=== PATIENT | male | born 1965 | race Hispanic/Latino ===

== ENCOUNTER 2020-10-27 11:04 | Inpatient (IN) | payer OTHER ==
[~2020-10-27] VITALS: Ht 175.3 cm; Wt 94.0 kg
[2020-10-27 12:16] LABS: BASOPHILS % (AUTO) 2.6 % (0.0-5.0); EOSINOPHILS % (AUTO) 8.8 % (0.0-8.0); HEMATOCRIT 35.6 % (42-54); LYMPHOCYTES % (AUTO) 23.7 % (21.0-51.0); MEAN CORPUSCULAR HEMOGLOBIN 29.3 pg (27.0-33.0); MEAN CORPUSCULAR HGB CONC 33.7 g/dL (32.0-36.0); MEAN CORPUSCULAR VOLUME 86.8 fL (79-99); MONOCYTES % (AUTO) 13.1 % (3.0-13.0); NEUTROPHILS % (AUTO) 51.4 % (40.0-77.0); PLATELET COUNT (AUTO) 102 K/uL (130-400); RED CELL DISTRIBUTION WIDTH 14.6 % (11.0-15.5); WHITE BLOOD COUNT (AUTO) 4.6 K/uL (4.8-10.8)
[2020-10-27 12:25] LABS: CREATININE 0.6 mg/dL (0.5-1.5); POTASSIUM 3.5 mmol/L (3.5-5.1)
[2020-10-27 12:29] LABS: ALBUMIN 2.4 g/dL (3.5-5.0); BILIRUBIN,TOTAL 5.6 mg/dL (0.2-1.0); TOTAL PROTEIN, SERUM 7.4 g/dL (6.0-8.3)
[2020-10-27 12:32] LABS: APPEARANCE,URINE Clear (CLEAR); BILIRUBIN,URINE Small (NEGATIVE); COLOR,URINE Dark Yellow (YELLOW); GLUCOSE, URINE (UA) Negative (NEGATIVE); KETONES,URINE Negative (NEGATIVE); LEUKOCYTE ESTERASE ,URINE Negative (NEGATIVE); NITRATE,URINE Negative (NEGATIVE); OCCULT BLOOD,URINE Negative (NEGATIVE); PH,URINE 6.5 (5.0-8.0); PROTEIN,URINE Negative (NEGATIVE)
[2020-10-27 12:39] LABS: AMPHET/METH SCREEN,URINE NEGATIVE (NEGATIVE); BARBITURATE SCREEN, URINE NEGATIVE (NEGATIVE); BENZODIAZEPINES SCREEN,URINE NEGATIVE (NEGATIVE); CANNABINOID SCREEN,URINE NEGATIVE (NEGATIVE); COCAINE SCREEN,URINE NEGATIVE (NEGATIVE); OPIATE SCREEN,URINE NEGATIVE (NEGATIVE); PHENCYCLIDINE SCREEN,URINE NEGATIVE (NEGATIVE)
[2020-10-27 12:54] LABS: B-TYPE NATRIURETIC PEPTIDE 35 pg/mL (0-100)
[2020-10-27 12:56] LABS: BACTERIA,URINE Rare /HPF (None Seen); RBC,URINE 0-1 /HPF (0-1); SQUAMOUS EPITHELIAL CELL,UR 0-2 /HPF (0-2); WBC,URINE 0-1 /HPF (0-1)
[2020-10-27] MEDS ORDERED: LORAZEPAM 2 MG/ML 1 ML VIAL IVP PRN (15:30)
[2020-10-27] MEDS ORDERED: PHARMACY COMMUNICATION MISC PRN (15:30)
[2020-10-27] MEDS ORDERED: CHLORDIAZEPOXIDE HCL 25 MG CAP PO PRN (15:30)
[2020-10-27 16:33] LABS: INR 1.53 (0.85-1.15)
[2020-10-27 16:39] LABS: CRP QUANTITATIVE 32.5 mg/L (0.00-9.0)
[2020-10-27] MEDS ORDERED: FUROSEMIDE 40 MG TABLET ONE (17:29)
[2020-10-27] MEDS ORDERED: FUROSEMIDE 40 MG TABLET PO SCH (17:30)
[2020-10-27] MEDS ORDERED: TRAMADOL HCL 50 MG TABLET ONE (20:02)
[2020-10-28 06:36] LABS: BASOPHILS % (AUTO) 2.5 % (0.0-5.0); EOSINOPHILS % (AUTO) 7.4 % (0.0-8.0); HEMATOCRIT 31.2 % (42-54); LYMPHOCYTES % (AUTO) 25.1 % (21.0-51.0); MEAN CORPUSCULAR HEMOGLOBIN 30.6 pg (27.0-33.0); MEAN CORPUSCULAR HGB CONC 34.9 g/dL (32.0-36.0); MEAN CORPUSCULAR VOLUME 87.6 fL (79-99); MONOCYTES % (AUTO) 15.5 % (3.0-13.0); NEUTROPHILS % (AUTO) 48.8 % (40.0-77.0); PLATELET COUNT (AUTO) 85 K/uL (130-400); RED BLOOD CELL COUNT(AUTO) 3.56 MIL/uL (4.50-6.20); RED CELL DISTRIBUTION WIDTH 14.6 % (11.0-15.5); WHITE BLOOD COUNT (AUTO) 4.1 K/uL (4.8-10.8)
[2020-10-28 06:49] LABS: ALBUMIN 2.1 g/dL (3.5-5.0); BILIRUBIN,TOTAL 5.6 mg/dL (0.2-1.0); CREATININE 0.5 mg/dL (0.5-1.5); POTASSIUM 3.1 mmol/L (3.5-5.1); TOTAL PROTEIN, SERUM 6.5 g/dL (6.0-8.3)
[2020-10-28] MEDS ORDERED: FUROSEMIDE 40 MG TABLET ONE (08:27)
[2020-10-28] MEDS ORDERED: FUROSEMIDE 40 MG TABLET PO SCH (09:00)
[2020-10-28] MEDS ORDERED: M.V.I. IV [ADULT] 10 ML, FOLIC ACID 1 MG, THIAMINE HCL 100 MG in SODIUM CHLORIDE 0.9% 1... IV SCH (09:00)
[2020-10-28] MEDS: THIAMINE HCL 100 MG/ML 2ML VIAL IVP SCH (09:00)
[2020-10-28] MEDS ORDERED: CHLORDIAZEPOXIDE HCL 25 MG CAP PO ONE (09:00)
[2020-10-28] MEDS: FOLIC ACID 1 MG TABLET PO SCH (09:00)
[2020-10-28] MEDS ORDERED: MAGNESIUM 2GM PREMIX 50ML 50 ML IV ONE (09:04)
[2020-10-28] MEDS ORDERED: CHLORDIAZEPOXIDE HCL 25 MG CAP ONE (09:04)
[2020-10-28] MEDS ORDERED: POTASSIUM CHLORIDE 10% ELIXIR 20 MEQ/15 ML UDCUP PO SCH (09:52)
[2020-10-28 10:08] LABS: THYROID STIMULATING HORMONE 3.82 uIU/mL (0.36-3.74)
[2020-10-28] MEDS ORDERED: LACTULOSE 20 GM/30 ML UDCUP PO PRN (11:45)
[2020-10-28] MEDS ORDERED: POTASSIUM CHLORIDE 20 MEQ ERTAB PO ONE (12:19)
[2020-10-28] MEDS ORDERED: THIAMINE HCL 100 MG/ML 2ML VIAL ONE (12:19)
[2020-10-28] MEDS ORDERED: FOLIC ACID 1 MG TABLET ONE (12:20)
[2020-10-28] MEDS: LACTULOSE 20 GM/30 ML UDCUP PO SCH ×2 (13:00→20:40)
[2020-10-28] MEDS: SPIRONOLACTONE 25 MG TAB PO SCH (14:00)
[2020-10-28] MEDS ORDERED: TRAMADOL HCL 50 MG TABLET ONE (15:26)
[2020-10-28 16:35] VITALS: BP 151/78
[2020-10-28] MEDS: TRAMADOL HCL 50 MG TABLET PO PRN (16:59)
[2020-10-28 20:27] VITALS: BP 121/70
[2020-10-28 23:48] VITALS: BP 123/66
[2020-10-29 04:16] VITALS: BP 131/76
[2020-10-29 05:49] LABS: EOSINOPHILS % (AUTO) 9.7 % (0.0-8.0); HEMATOCRIT 32.2 % (42-54); LYMPHOCYTES % (AUTO) 27.6 % (21.0-51.0); MEAN CORPUSCULAR HEMOGLOBIN 30.2 pg (27.0-33.0); MEAN CORPUSCULAR HGB CONC 34.5 g/dL (32.0-36.0); MEAN CORPUSCULAR VOLUME 87.5 fL (79-99); MONOCYTES % (AUTO) 14.2 % (3.0-13.0); NEUTROPHILS % (AUTO) 45.9 % (40.0-77.0); PLATELET COUNT (AUTO) 104 K/uL (130-400); RED BLOOD CELL COUNT(AUTO) 3.68 MIL/uL (4.50-6.20); RED CELL DISTRIBUTION WIDTH 14.4 % (11.0-15.5); WHITE BLOOD COUNT (AUTO) 5.1 K/uL (4.8-10.8)
[2020-10-29] MEDS: FUROSEMIDE 20 MG TABLET PO SCH ×2 (06:00→17:46)
[2020-10-29 06:15] LABS: BILIRUBIN,TOTAL 5.4 mg/dL (0.2-1.0); CREATININE 0.6 mg/dL (0.5-1.5); MAGNESIUM 1.6 mg/dL (1.80-2.40); POTASSIUM 3.3 mmol/L (3.5-5.1); TOTAL PROTEIN, SERUM 6.7 g/dL (6.0-8.3)
[2020-10-29 07:16] LABS: HEPATITIS A ANTIBODY IGM Negative (Negative); HEPATITIS B CORE IGM Negative (Negative); HEPATITIS Bs ANTIGEN SCREEN P Negative (Negative)
[2020-10-29 08:27] VITALS: BP 129/70
[2020-10-29] MEDS ORDERED: FUROSEMIDE 20 MG TABLET PO SCH (09:00)
[2020-10-29] MEDS: FOLIC ACID 1 MG TABLET PO SCH (10:54)
[2020-10-29] MEDS: LACTULOSE 20 GM/30 ML UDCUP PO SCH ×2 (10:54→21:57)
[2020-10-29] MEDS: THIAMINE HCL 100 MG/ML 2ML VIAL IVP SCH (10:54)
[2020-10-29] MEDS: SPIRONOLACTONE 25 MG TAB PO SCH (10:54)
[2020-10-29 11:41] VITALS: BP 116/61
[2020-10-29] MEDS: TRAMADOL HCL 50 MG TABLET PO PRN (15:28)
[2020-10-29 16:45] VITALS: BP 112/66
[2020-10-29 18:09] LABS: CHLAMYDIA DNA N.A.AMPLIFY Negative (Negative)
[2020-10-29 20:00] VITALS: BP 112/59
[2020-10-29] MEDS ORDERED: POTASSIUM CHLORIDE 20MEQ/100ML 100 ML IV PRN (20:30)
[2020-10-29] MEDS ORDERED: POTASSIUM CHLORIDE 10% ELIXIR 20 MEQ/15 ML UDCUP PO PRN (20:30)
[2020-10-29] MEDS ORDERED: MAGNESIUM 2GM PREMIX 50ML 50 ML IV PRN (20:30)
[2020-10-29] MEDS ORDERED: LIDOCAINE HCL-MPF 1% 2ML VIAL IV PRN (20:30)
[2020-10-29] MEDS: POTASSIUM CHLORIDE 20 MEQ ERTAB PO PRN (21:59)
[2020-10-29] MEDS: MAGNESIUM 2GM PREMIX 50ML 50 ML IV SCH (21:59)
[2020-10-30] VITALS: BP 96/52
[2020-10-30] MEDS: POTASSIUM CHLORIDE 20 MEQ ERTAB PO PRN ×3 (00:25→15:03)
[2020-10-30] MEDS: TRAMADOL HCL 50 MG TABLET PO PRN (00:26)
[2020-10-30 04:00] VITALS: BP 112/62
[2020-10-30 04:53] LABS: BASOPHILS % (AUTO) 1.6 % (0.0-5.0); LYMPHOCYTES % (AUTO) 27.3 % (21.0-51.0); MEAN CORPUSCULAR HEMOGLOBIN 31.3 pg (27.0-33.0); MEAN CORPUSCULAR HGB CONC 35.2 g/dL (32.0-36.0); MEAN CORPUSCULAR VOLUME 89.1 fL (79-99); MONOCYTES % (AUTO) 14.2 % (3.0-13.0); NEUTROPHILS % (AUTO) 46.4 % (40.0-77.0); PLATELET COUNT (AUTO) 104 K/uL (130-400); RED BLOOD CELL COUNT(AUTO) 3.48 MIL/uL (4.50-6.20); RED CELL DISTRIBUTION WIDTH 14.6 % (11.0-15.5); WHITE BLOOD COUNT (AUTO) 5.5 K/uL (4.8-10.8)
[2020-10-30 05:04] LABS: CREATININE 0.6 mg/dL (0.5-1.5); POTASSIUM 3.4 mmol/L (3.5-5.1)
[2020-10-30] MEDS: FUROSEMIDE 20 MG TABLET PO SCH ×2 (05:47→19:38)
[2020-10-30 05:52] LABS: BILIRUBIN,DIRECT 2.8 mg/dL (0.0-0.3); MAGNESIUM 1.7 mg/dL (1.80-2.40); TOTAL PROTEIN, SERUM 6.6 g/dL (6.0-8.3)
[2020-10-30] MEDS: MAGNESIUM 2GM PREMIX 50ML 50 ML IV SCH (06:25)
[2020-10-30 07:30] VITALS: BP 102/65
[2020-10-30] MEDS: LACTULOSE 20 GM/30 ML UDCUP PO SCH (10:30)
[2020-10-30] MEDS: SPIRONOLACTONE 25 MG TAB PO SCH (10:30)
[2020-10-30] MEDS: FOLIC ACID 1 MG TABLET PO SCH (10:30)
[2020-10-30] MEDS: THIAMINE HCL 100 MG/ML 2ML VIAL IVP SCH (10:32)
[2020-10-30 11:00] VITALS: BP 107/71
[2020-10-30] MEDS ORDERED: CHLORDIAZEPOXIDE HCL 25 MG CAP PO SCH (13:30)
[2020-10-30] MEDS ORDERED: CYAN-52 PO (15:30)
[2020-10-30] MEDS ORDERED: LIB25 PO (15:30)
[2020-10-30] MEDS ORDERED: FOLI0.4T6 PO (15:30)
[2020-10-30] MEDS ORDERED: LACT PO (15:30)
[2020-10-30] MEDS ORDERED: SPIR25TA6 PO (15:30)
[2020-10-30 16:00] VITALS: BP 111/69
== END 2020-10-30 19:20 | disposition home or self-care (01) | DRG 729 ==
LOC: EDH 11:04 → EDHIP 11:05 → 4AH 10-28 16:39 → 3BH 10-29 11:24
PROVIDERS: ADMIT Internal Medicine; ATTEND Internal Medicine
DX: N50.89 Other specified disorders of the male genital organs (principal); D68.4 Acquired coagulation factor deficiency; K76.6 Portal hypertension; K70.31 Alcoholic cirrhosis of liver with ascites; F10.10 Alcohol abuse, uncomplicated; D69.6 Thrombocytopenia, unspecified; K40.90 Unilateral inguinal hernia, without obstruction or gangrene, not specified as recurrent; K70.11 Alcoholic hepatitis with ascites; K57.30 Diverticulosis of large intestine without perforation or abscess without bleeding
CPT/HCPCS: 36415; 70450; 71046; 74176; 76705; 76870; 80048; 80053; 80061; 80074; 80076; 80305; 81001; 82140; 82550; 83036; 83735; 83880; 84145; 84443; 84484; 85025; 85610; 86140; 86592; 87486; 87797; G0378; J3411; J3475; J3490; J7030

== ENCOUNTER 2020-12-02 09:40 | Emergency (ER) | payer OTHER ==
[~2020-12-02] VITALS: Ht 172.7 cm; Wt 97.5 kg
[~2020-12-02 09:40] MED LIST: CYAN-52 PO; FOLI0.4T6 PO; LACT PO; LIB25 PO; SPIR25TA6 PO
[2020-12-02 09:42] VITALS: BP 118/71
[2020-12-02 10:08] LABS: BASOPHILS % (AUTO) 1.4 % (0.0-5.0); EOSINOPHILS % (AUTO) 12.6 % (0.0-8.0); HEMATOCRIT 27.4 % (42-54); LYMPHOCYTES % (AUTO) 28.7 % (21.0-51.0); MEAN CORPUSCULAR HEMOGLOBIN 30.8 pg (27.0-33.0); MEAN CORPUSCULAR HGB CONC 33.6 g/dL (32.0-36.0); MEAN CORPUSCULAR VOLUME 91.6 fL (79-99); MONOCYTES % (AUTO) 8.1 % (3.0-13.0); NEUTROPHILS % (AUTO) 48.7 % (40.0-77.0); PLATELET COUNT (AUTO) 135 K/uL (130-400); RED BLOOD CELL COUNT(AUTO) 2.99 MIL/uL (4.50-6.20); RED CELL DISTRIBUTION WIDTH 14.5 % (11.0-15.5); WHITE BLOOD COUNT (AUTO) 6.5 K/uL (4.8-10.8)
[2020-12-02 10:13] LABS: CREATININE 0.8 mg/dL (0.5-1.5); POTASSIUM 4.2 mmol/L (3.5-5.1)
[2020-12-02 10:17] LABS: ALBUMIN 1.8 g/dL (3.5-5.0); BILIRUBIN,TOTAL 5.5 mg/dL (0.2-1.0); TOTAL PROTEIN, SERUM 7.2 g/dL (6.0-8.3)
[2020-12-02] MEDS ORDERED: ALBUMIN (HUMAN) 25% 200 ML IV ONE (10:36)
[2020-12-02 11:58] LABS: INR 1.57 (0.85-1.15); PROTHROMBIN TIME 16.4 SEC (9.6-11.6)
[2020-12-02 12:00] LABS: PARTIAL THROMBOPLASTIN TIME 38.3 SEC (26.3-35.5)
[2020-12-02 12:59] VITALS: BP 132/60
[2020-12-02 17:56] LABS: APPEARANCE BODY FLUID CLEAR (CLEAR); SPECIMENTYPE,BODY FLUID ASCITES
[2020-12-02 17:57] LABS: BODY FLUID RBC 124 /cu. mm.; BODY FLUID WBC 143 /cu. mm.; COLOR,BODY FLUID YELLOW (LT YELLOW)
[2020-12-02 18:11] LABS: BF LYMPHOCYTE 18 %; BF MONOCYTE 1 %; BF OTHER CELLS 7
[2020-12-02 19:10] LABS: TOTAL VOLUME,BODY FLUID 11200 mL
== END 2020-12-02 13:13 | disposition home or self-care (01) ==
LOC: EDH 09:40
DX: R18.8 Other ascites (principal); K74.60 Unspecified cirrhosis of liver; Z79.899 Other long term (current) drug therapy
CPT/HCPCS: 36415; 49083; 80053; 82150; 82550; 83690; 84484; 85025; 85610; 85730; 87071; 87205; 89051; 93005; 96365; 99285; A4215; P9046

== ENCOUNTER 2020-12-19 08:29 | Emergency (ER) | payer OTHER ==
[~2020-12-19] VITALS: Ht 167.6 cm; Wt 108.9 kg
[2020-12-19 08:31] VITALS: BP 114/55
[2020-12-19 09:12] LABS: BASOPHILS % (AUTO) 1.1 % (0.0-5.0); EOSINOPHILS % (AUTO) 13.3 % (0.0-8.0); HEMATOCRIT 26.1 % (42-54); LYMPHOCYTES % (AUTO) 26.9 % (21.0-51.0); MEAN CORPUSCULAR HGB CONC 34.1 g/dL (32.0-36.0); MEAN CORPUSCULAR VOLUME 93.9 fL (79-99); MONOCYTES % (AUTO) 11.9 % (3.0-13.0); NEUTROPHILS % (AUTO) 46.1 % (40.0-77.0); PLATELET COUNT (AUTO) 132 K/uL (130-400); RED BLOOD CELL COUNT(AUTO) 2.78 MIL/uL (4.50-6.20); RED CELL DISTRIBUTION WIDTH 14.9 % (11.0-15.5)
[2020-12-19 09:20] LABS: CREATININE 0.8 mg/dL (0.5-1.5); POTASSIUM 3.9 mmol/L (3.5-5.1)
[2020-12-19 09:21] LABS: INR 1.8 (0.85-1.15); PROTHROMBIN TIME 18.6 SEC (9.6-11.6)
[2020-12-19 09:25] LABS: ALBUMIN 1.7 g/dL (3.5-5.0); BILIRUBIN,TOTAL 6.2 mg/dL (0.2-1.0); TOTAL PROTEIN, SERUM 6.6 g/dL (6.0-8.3)
[2020-12-19 10:13] VITALS: BP 110/66
[2020-12-19 11:24] VITALS: BP 102/59
[2020-12-19] MEDS ORDERED: ALBUMIN (HUMAN) 25% 200 ML IV ONE (11:26)
[2020-12-19] MEDS ORDERED: SODIUM BICARB 50MEQ 50ML VIAL 50 ML ONE (11:26)
[2020-12-19] MEDS ORDERED: ALBUMIN (HUMAN) 25% 200 ML IV SCH (11:30)
[2020-12-19 12:29] VITALS: BP 110/66
[2020-12-19 13:59] VITALS: BP 102/55
[2020-12-19 15:04] VITALS: BP 108/60
[2020-12-19 17:20] LABS: APPEARANCE BODY FLUID SLIGHTLY CLOUDY (CLEAR); COLOR,BODY FLUID YELLOW (LT YELLOW); SPECIMENTYPE,BODY FLUID ASCITES; TOTAL VOLUME,BODY FLUID 12700 mL
[2020-12-19 17:21] LABS: BODY FLUID RBC 78 /cu. mm.; BODY FLUID WBC 73 /cu. mm.
[2020-12-19 17:43] LABS: BF LYMPHOCYTE 44 %; BF MESOTHELIAL 31 %; BF MONOCYTE 2 %
== END 2020-12-19 16:05 | disposition home or self-care (01) ==
LOC: EDH 08:29
DX: R18.8 Other ascites (principal); R14.0 Abdominal distension (gaseous); R06.02 Shortness of breath; Z98.890 Other specified postprocedural states; Z79.899 Other long term (current) drug therapy
CPT/HCPCS: 36415; 49083; 71045; 80053; 84484; 85025; 85610; 87071; 87205; 89051; 96365; 99285; A4215; J3490; P9046

== ENCOUNTER 2021-01-02 09:20 | Emergency (ER) | payer OTHER ==
[~2021-01-02] VITALS: Ht 172.7 cm; Wt 107.5 kg
[2021-01-02 10:02] LABS: BASOPHILS % (AUTO) 1.4 % (0.0-5.0); EOSINOPHILS % (AUTO) 16.4 % (0.0-8.0); HEMATOCRIT 24.6 % (42-54); LYMPHOCYTES % (AUTO) 24.5 % (21.0-51.0); MEAN CORPUSCULAR HEMOGLOBIN 31.1 pg (27.0-33.0); MEAN CORPUSCULAR HGB CONC 33.7 g/dL (32.0-36.0); MEAN CORPUSCULAR VOLUME 92.1 fL (79-99); MONOCYTES % (AUTO) 9.4 % (3.0-13.0); NEUTROPHILS % (AUTO) 47.7 % (40.0-77.0); PLATELET COUNT (AUTO) 119 K/uL (130-400); RED BLOOD CELL COUNT(AUTO) 2.67 MIL/uL (4.50-6.20); RED CELL DISTRIBUTION WIDTH 13.4 % (11.0-15.5); WHITE BLOOD COUNT (AUTO) 6.4 K/uL (4.8-10.8)
[2021-01-02 10:06] LABS: APPEARANCE,URINE Clear (CLEAR); BILIRUBIN,URINE Negative (NEGATIVE); COLOR,URINE Yellow (YELLOW); GLUCOSE, URINE (UA) Negative (NEGATIVE); KETONES,URINE Negative (NEGATIVE); LEUKOCYTE ESTERASE ,URINE Negative (NEGATIVE); NITRATE,URINE Negative (NEGATIVE); OCCULT BLOOD,URINE Negative (NEGATIVE); PH,URINE 5.5 (5.0-8.0); PROTEIN,URINE Negative (NEGATIVE)
[2021-01-02 10:17] LABS: ALBUMIN 1.8 g/dL (3.5-5.0); BILIRUBIN,TOTAL 4.6 mg/dL (0.2-1.0); CREATININE 0.8 mg/dL (0.5-1.5); MAGNESIUM 1.7 mg/dL (1.80-2.40); POTASSIUM 4.1 mmol/L (3.5-5.1); TOTAL PROTEIN, SERUM 6.7 g/dL (6.0-8.3)
[2021-01-02 10:33] LABS: INR 1.74 (0.85-1.15)
[2021-01-02 10:35] LABS: PARTIAL THROMBOPLASTIN TIME 44.6 SEC (26.3-35.5)
[2021-01-02] MEDS ORDERED: MAGNESIUM OXIDE 400 MG TABLET PO SCH (11:00)
[2021-01-02 11:11] VITALS: BP 97/51
[2021-01-02] MEDS ORDERED: ALBUMIN (HUMAN) 25% 200 ML IV ONE (11:57)
[2021-01-02 13:44] VITALS: BP 91/55
[2021-01-02 15:19] LABS: BF LYMPHOCYTE 45 %; BF MESOTHELIAL 18 %; BF MONOCYTE 6 %
[2021-01-02 15:23] LABS: APPEARANCE BODY FLUID SLIGHTLY CLOUDY (CLEAR); COLOR,BODY FLUID YELLOW (LT YELLOW); SPECIMENTYPE,BODY FLUID ASCITES; TOTAL VOLUME,BODY FLUID 13800 mL
[2021-01-02 15:24] LABS: BODY FLUID RBC 50 /cu. mm.; BODY FLUID WBC 67 /cu. mm.
== END 2021-01-02 15:41 | disposition home or self-care (01) ==
LOC: EDH 09:20
DX: R18.8 Other ascites (principal); K74.60 Unspecified cirrhosis of liver; E83.42 Hypomagnesemia; Z79.899 Other long term (current) drug therapy
CPT/HCPCS: 36415; 49083; 80053; 81003; 83690; 83735; 85025; 85610; 85730; 87071; 87205; 89051; 96365; 99285; C1729; P9046

== ENCOUNTER 2021-01-06 12:31 | Emergency (ER) | payer OTHER ==
[~2021-01-06] VITALS: Ht 172.7 cm; Wt 104.3 kg
[2021-01-06 12:32] VITALS: BP 107/64
[2021-01-06 14:45] LABS: HEMATOCRIT 24.2 % (42-54); MEAN CORPUSCULAR HEMOGLOBIN 31.2 pg (27.0-33.0); MEAN CORPUSCULAR HGB CONC 33.5 g/dL (32.0-36.0); MEAN CORPUSCULAR VOLUME 93.1 fL (79-99); PLATELET COUNT (AUTO) 132 K/uL (130-400); RED CELL DISTRIBUTION WIDTH 13.3 % (11.0-15.5); WHITE BLOOD COUNT (AUTO) 10.6 K/uL (4.8-10.8)
[2021-01-06 14:59] LABS: POTASSIUM 4.5 mmol/L (3.5-5.1)
[2021-01-06 15:00] LABS: INR 1.86 (0.85-1.15); PROTHROMBIN TIME 19.2 SEC (9.6-11.6)
[2021-01-06 15:02] LABS: PARTIAL THROMBOPLASTIN TIME 49.7 SEC (26.3-35.5)
[2021-01-06 15:04] LABS: ALBUMIN 1.9 g/dL (3.5-5.0); BILIRUBIN,TOTAL 7.1 mg/dL (0.2-1.0); TOTAL PROTEIN, SERUM 6.4 g/dL (6.0-8.3)
[2021-01-06 15:28] LABS: EOSINOPHILS % (MANUAL) 3 % (1-6); LYMPHOCYTES % (MANUAL) 22 % (22-44); MONOCYTES % (MANUAL) 4 % (2-9); SEGMENTED NEUTROPHILS % 71 % (40-70)
[2021-01-06 15:29] LABS: MAN.DIFF COMMENT-IMPRESSION MANUAL DIFFERENTIAL; PLATELET MORPHOLOGY COMMENT ADEQUATE
[2021-01-06 18:04] VITALS: BP 135/82
== END 2021-01-06 18:00 | disposition home or self-care (01) ==
LOC: EDH 12:31
DX: R18.8 Other ascites (principal); K74.60 Unspecified cirrhosis of liver; Z79.899 Other long term (current) drug therapy
CPT/HCPCS: 36415; 80053; 85025; 85610; 85730

== ENCOUNTER 2021-01-07 08:29 | Inpatient (IN) | payer OTHER ==
[~2021-01-07] VITALS: Ht 172.7 cm; Wt 104.3 kg
[2021-01-07] MEDS: FAMOTIDINE 20MG VIAL IV SCH ×2 (00:30→13:58)
[2021-01-07 08:37] VITALS: BP 113/65
[2021-01-07 09:45] LABS: BASOPHILS % (AUTO) 0.5 % (0.0-5.0); EOSINOPHILS % (AUTO) 8.1 % (0.0-8.0); MEAN CORPUSCULAR HGB CONC 33.8 g/dL (32.0-36.0); MONOCYTES % (AUTO) 13.4 % (3.0-13.0); NEUTROPHILS % (AUTO) 60.4 % (40.0-77.0); PLATELET COUNT (AUTO) 128 K/uL (130-400); RED BLOOD CELL COUNT(AUTO) 2.61 MIL/uL (4.50-6.20); RED CELL DISTRIBUTION WIDTH 13.1 % (11.0-15.5); WHITE BLOOD COUNT (AUTO) 8.4 K/uL (4.8-10.8)
[2021-01-07 10:01] LABS: INR 1.73 (0.85-1.15); PROTHROMBIN TIME 17.9 SEC (9.6-11.6)
[2021-01-07 10:02] LABS: PARTIAL THROMBOPLASTIN TIME 49.5 SEC (26.3-35.5)
[2021-01-07 10:04] LABS: ALBUMIN 1.8 g/dL (3.5-5.0); BILIRUBIN,TOTAL 5.6 mg/dL (0.2-1.0); POTASSIUM 4.2 mmol/L (3.5-5.1); TOTAL PROTEIN, SERUM 6.2 g/dL (6.0-8.3)
[2021-01-07] MEDS ORDERED: CHLORDIAZEPOXIDE HCL 25 MG CAP PO PRN (11:30)
[2021-01-07] MEDS ORDERED: LACTULOSE 20 GM/30 ML UDCUP PO PRN (11:30)
[2021-01-07] MEDS ORDERED: LORAZEPAM 2 MG/ML 1 ML VIAL IVP PRN (11:30)
[2021-01-07] MEDS ORDERED: PHARMACY COMMUNICATION MISC PRN (11:30)
[2021-01-07] MEDS ORDERED: SPIRONOLACTONE 25 MG TAB PO SCH (11:52)
[2021-01-07] MEDS: THIAMINE HCL 100 MG/ML 2ML VIAL IVP SCH (13:58)
[2021-01-07] MEDS: FOLIC ACID 1 MG TABLET PO SCH (13:58)
[2021-01-07] MEDS: FUROSEMIDE 40MG VIAL IVP SCH ×2 (13:58→23:30)
[2021-01-07 14:00] VITALS: BP 108/58
[2021-01-07] MEDS ORDERED: ALBUMIN (HUMAN) 25% 200 ML IV ONE (14:30)
[2021-01-07 14:58] VITALS: BP 89/54
[2021-01-07] MEDS ORDERED: PHYTONADIONE 10 MG in 0.9%NACL 50ML 50 ML IVPB ONE (15:00)
[2021-01-07] MEDS ORDERED: LACTATED RINGERS 1000ML IV SCH (15:00)
[2021-01-07 16:01] LABS: APPEARANCE BODY FLUID SLIGHTLY CLOUDY (CLEAR); COLOR,BODY FLUID DARK YELLOW (LT YELLOW); SPECIMENTYPE,BODY FLUID ASCITES
[2021-01-07 16:02] LABS: BODY FLUID RBC 725 /cu. mm.; BODY FLUID WBC 789 /cu. mm.; TOTAL VOLUME,BODY FLUID 9000 mL
[2021-01-07 16:09] LABS: BF EOSINOPHIL 3 %; BF LYMPHOCYTE 2 %; BF MESOTHELIAL 8 %; BF MONOCYTE 1 %; BF OTHER CELLS 11
[2021-01-07 17:19] LABS: APPEARANCE BODY FLUID SLIGHTLY CLOUDY (CLEAR); COLOR,BODY FLUID YELLOW (LT YELLOW); SPECIMENTYPE,BODY FLUID PLEURAL
[2021-01-07 17:20] LABS: BODY FLUID RBC 948 /cu. mm.; BODY FLUID WBC 550 /cu. mm.; TOTAL VOLUME,BODY FLUID 22 mL
[2021-01-07 17:45] LABS: BF EOSINOPHIL 5 %; BF LYMPHOCYTE 14 %; BF MESOTHELIAL 5 %; BF OTHER CELLS 3
[2021-01-07 18:36] VITALS: BP 99/51
[2021-01-07 19:30] VITALS: BP 104/56
[2021-01-08] VITALS (7 sets, daily range): BP systolic 88–106; BP diastolic 54–67
[2021-01-08] MEDS: FAMOTIDINE 20MG VIAL IV SCH ×2 (08:47→21:02)
[2021-01-08] MEDS: THIAMINE HCL 100 MG/ML 2ML VIAL IVP SCH (08:47)
[2021-01-08] MEDS: FOLIC ACID 1 MG TABLET PO SCH (08:47)
[2021-01-08] MEDS ORDERED: PHARMACY COMMUNICATION MISC SCH (09:00)
[2021-01-08 09:26] LABS: BASOPHILS % (AUTO) 0.8 % (0.0-5.0); EOSINOPHILS % (AUTO) 9.6 % (0.0-8.0); HEMATOCRIT 21.6 % (42-54); LYMPHOCYTES % (AUTO) 29.9 % (21.0-51.0); MEAN CORPUSCULAR HEMOGLOBIN 31.4 pg (27.0-33.0); MEAN CORPUSCULAR HGB CONC 34.3 g/dL (32.0-36.0); MEAN CORPUSCULAR VOLUME 91.5 fL (79-99); MONOCYTES % (AUTO) 12.2 % (3.0-13.0); PLATELET COUNT (AUTO) 105 K/uL (130-400); RED BLOOD CELL COUNT(AUTO) 2.36 MIL/uL (4.50-6.20); RED CELL DISTRIBUTION WIDTH 13.2 % (11.0-15.5); WHITE BLOOD COUNT (AUTO) 3.9 K/uL (4.8-10.8)
[2021-01-08 09:52] LABS: CREATININE 0.7 mg/dL (0.5-1.5); POTASSIUM 3.9 mmol/L (3.5-5.1)
[2021-01-08 09:57] LABS: ALBUMIN 1.9 g/dL (3.5-5.0); BILIRUBIN,TOTAL 4.7 mg/dL (0.2-1.0); MAGNESIUM 1.8 mg/dL (1.80-2.40); TOTAL PROTEIN, SERUM 5.5 g/dL (6.0-8.3)
[2021-01-08] MEDS: CEFTRIAXONE 2GM VIAL IVP SCH (10:25)
[2021-01-08] MEDS: ALBUMIN 25% IV SCH (14:46)
[2021-01-08] MEDS ORDERED: LACTULOSE 20 GM/30 ML UDCUP PO PRN (15:30)
[2021-01-08] MEDS ORDERED: LACTULOSE 20 GM/30 ML UDCUP PO SCH (18:00)
[2021-01-08] MEDS: LACTULOSE 20 GM/30 ML UDCUP PO SCH (21:02)
[2021-01-09 01:15] VITALS: BP 95/65
[2021-01-09 02:09] VITALS: BP 98/67
[2021-01-09 08:11] VITALS: BP 110/60
[2021-01-09] MEDS: FAMOTIDINE 20MG VIAL IV SCH (08:32)
[2021-01-09] MEDS: THIAMINE HCL 100 MG/ML 2ML VIAL IVP SCH (08:33)
[2021-01-09] MEDS: LACTULOSE 20 GM/30 ML UDCUP PO SCH (08:33)
[2021-01-09] MEDS: CEFTRIAXONE 2GM VIAL IVP SCH (08:33)
[2021-01-09] MEDS: FOLIC ACID 1 MG TABLET PO SCH (08:33)
[2021-01-09] MEDS: ALBUMIN 25% IV SCH (09:10)
[2021-01-09 10:35] VITALS: BP 103/66
[2021-01-09] MEDS ORDERED: CEFD300C3 PO ×2 (12:44→17:15)
[2021-01-09 12:53] VITALS: BP 113/65
== END 2021-01-09 14:30 | disposition home or self-care (01) | DRG 432 ==
LOC: EDH 08:29 → EDHIP 08:30
PROVIDERS: ADMIT Internal Medicine; ATTEND Internal Medicine
PROC: 0W9G3ZZ Drainage of Peritoneal Cavity, Percutaneous Approach (ICD-10-PCS; principal; 2021-01-07)
PROC: 30233K1 Transfusion of Nonautologous Frozen Plasma into Peripheral Vein, Percutaneous Approach (ICD-10-PCS; 2021-01-07)
DX: K70.31 Alcoholic cirrhosis of liver with ascites (principal); J96.01 Acute respiratory failure with hypoxia; E43 Unspecified severe protein-calorie malnutrition; K65.2 Spontaneous bacterial peritonitis; D68.4 Acquired coagulation factor deficiency; E87.1 Hypo-osmolality and hyponatremia; J91.8 Pleural effusion in other conditions classified elsewhere; K76.6 Portal hypertension; D63.8 Anemia in other chronic diseases classified elsewhere; D69.59 Other secondary thrombocytopenia; E87.70 Fluid overload, unspecified; F10.10 Alcohol abuse, uncomplicated; L80 Vitiligo; Z82.49 Family history of ischemic heart disease and other diseases of the circulatory system; K70.10 Alcoholic hepatitis without ascites; E88.09 Other disorders of plasma-protein metabolism, not elsewhere classified; Z68.35 Body mass index [BMI] 35.0-35.9, adult
CPT/HCPCS: 36415; 49083; 71045; 71250; 74176; 80053; 82945; 83605; 83615; 83735; 83986; 84157; 85025; 85610; 85730; 86850; 86900; 86901; 86927; 87071; 87116; 87205; 87206; 89051; 93005; C1729; G0378; J0696; J1940; J3411; J3430; J3490; P9017; P9046

== ENCOUNTER 2021-01-15 08:55 | Inpatient (IN) | payer OTHER ==
[2021-01-15] VITALS (7 sets, daily range): BP systolic 101–155; BP diastolic 47–85
[~2021-01-15] VITALS: Ht 172.7 cm; Wt 102.1 kg
[~2021-01-15 08:55] MED LIST changes: +CEFD300C3 PO
[2021-01-15 09:38] LABS: BASOPHILS % (AUTO) 0.2 % (0.0-5.0); EOSINOPHILS % (AUTO) 0.2 % (0.0-8.0); HEMATOCRIT 23.4 % (42-54); LYMPHOCYTES % (AUTO) 9.3 % (21.0-51.0); MEAN CORPUSCULAR HEMOGLOBIN 31.3 pg (27.0-33.0); MEAN CORPUSCULAR HGB CONC 33.3 g/dL (32.0-36.0); MONOCYTES % (AUTO) 5.4 % (3.0-13.0); NEUTROPHILS % (AUTO) 83.8 % (40.0-77.0); PLATELET COUNT (AUTO) 111 K/uL (130-400); RED BLOOD CELL COUNT(AUTO) 2.49 MIL/uL (4.50-6.20); RED CELL DISTRIBUTION WIDTH 13.7 % (11.0-15.5); WHITE BLOOD COUNT (AUTO) 11.6 K/uL (4.8-10.8)
[2021-01-15 09:53] LABS: ALBUMIN 2.1 g/dL (3.5-5.0); BILIRUBIN,TOTAL 7.5 mg/dL (0.2-1.0); CREATININE 1.3 mg/dL (0.5-1.5); TOTAL PROTEIN, SERUM 6.5 g/dL (6.0-8.3)
[2021-01-15 09:59] LABS: POTASSIUM 3.9 mmol/L (3.5-5.1)
[2021-01-15 11:22] LABS: APPEARANCE,URINE Clear (CLEAR); BILIRUBIN,URINE Moderate (NEGATIVE); COLOR,URINE Dark Yellow (YELLOW); GLUCOSE, URINE (UA) Negative (NEGATIVE); KETONES,URINE Negative (NEGATIVE); LEUKOCYTE ESTERASE ,URINE Trace (NEGATIVE); NITRATE,URINE Positive (NEGATIVE); OCCULT BLOOD,URINE Negative (NEGATIVE); PROTEIN,URINE Negative (NEGATIVE)
[2021-01-15 11:45] LABS: BACTERIA,URINE Moderate /HPF (None Seen); RBC,URINE None Seen /HPF (0-1); SQUAMOUS EPITHELIAL CELL,UR 0-2 /HPF (0-2)
[2021-01-15] MEDS ORDERED: INSULIN HUMULIN R 100 UNIT/ML 3ML ONE (13:35)
[2021-01-15] MEDS ORDERED: ACETAMINOPHEN 325 MG TAB PO PRN ×2 (14:00)
[2021-01-15] MEDS: 0.9%NACL 1000ML 1,000 ML IV SCH ×2 (14:00→23:53)
[2021-01-15] MEDS ORDERED: PHARMACY COMMUNICATION MISC SCH (14:00)
[2021-01-15] MEDS ORDERED: 0.9%NACL 1000ML 1,000 ML IV SCH (14:00)
[2021-01-15] MEDS ORDERED: ONDANSETRON 4MG INJ IV PRN (14:00)
[2021-01-15] MEDS ORDERED: CEFTRIAXONE 2GM VIAL IVP SCH (14:00)
[2021-01-15] MEDS ORDERED: SODIUM BICARB 50MEQ 50ML VIAL 50 ML ONE (14:20)
[2021-01-15] MEDS ORDERED: ALBUMIN 25% IV SCH (14:30)
[2021-01-15] MEDS ORDERED: PROMETHAZINE HCL 25 MG TABLET PO PRN (15:30)
[2021-01-15] MEDS ORDERED: PHARMACY COMMUNICATION MISC PRN (15:30)
[2021-01-15] MEDS ORDERED: LORAZEPAM 2 MG/ML 1 ML VIAL IVP PRN (15:30)
[2021-01-15] MEDS ORDERED: CHLORDIAZEPOXIDE HCL 25 MG CAP PO PRN (15:30)
[2021-01-15] MEDS: 0.9%NACL 50ML 50 ML IV SCH (16:00)
[2021-01-15 16:14] LABS: INR 2.11 (0.85-1.15); PROTHROMBIN TIME 21.5 SEC (9.6-11.6)
[2021-01-15 16:38] LABS: AMPHET/METH SCREEN,URINE NEGATIVE (NEGATIVE); BARBITURATE SCREEN, URINE NEGATIVE (NEGATIVE); BENZODIAZEPINES SCREEN,URINE NEGATIVE (NEGATIVE); CANNABINOID SCREEN,URINE NEGATIVE (NEGATIVE); COCAINE SCREEN,URINE NEGATIVE (NEGATIVE); OPIATE SCREEN,URINE POSITIVE (NEGATIVE); PHENCYCLIDINE SCREEN,URINE NEGATIVE (NEGATIVE)
[2021-01-15 16:47] LABS: GLUCOSE,BODY FLUID 131 mg/dL (1-40)
[2021-01-15] MEDS: OCTREOTIDE ACETATE 100 MCG/ML AMP SQ SCH ×2 (17:20→21:33)
[2021-01-15 17:32] LABS: ABG BASE EXCESS 0.8 mmol/L (-2.0-3.0); ABG HCO3 23.9 mmol/L (21.0-28.0); ABG OXYGEN SATURATION 95.5 % (95.0-99.0); ABG PCO2 34 mmHg (35-48)
[2021-01-15] MEDS: ZOSYN 3.375GM +NS 50ML IV SCH (18:55)
[2021-01-15] MEDS: MIDODRINE HCL 5 MG TABLET PO SCH ×2 (19:00→21:33)
[2021-01-15 20:11] LABS: APPEARANCE BODY FLUID CLOUDY (CLEAR); BODY FLUID WBC 2135 /cu. mm.; COLOR,BODY FLUID YELLOW (LT YELLOW); SPECIMENTYPE,BODY FLUID ASCITES; TOTAL VOLUME,BODY FLUID 4000 mL
[2021-01-15 20:12] LABS: BODY FLUID RBC 505 /cu. mm.
[2021-01-15 20:16] LABS: PH, BODY FLUID 7
[2021-01-15 20:19] LABS: BF LYMPHOCYTE 4 %; BF MONOCYTE 5 %
[2021-01-15] MEDS ORDERED: ZOSYN 3.375GM+NS 50ML 50 ML IV SCH (21:00)
[2021-01-15] MEDS ORDERED: FAMOTIDINE 20MG VIAL IV SCH (21:00)
[2021-01-15] MEDS ORDERED: FUROSEMIDE 40MG VIAL IV ONE (21:00)
[2021-01-16] VITALS (21 sets, daily range): BP systolic 94–124; BP diastolic 52–77
[2021-01-16] MEDS: 0.9%NACL 50ML 50 ML IV SCH ×3 (02:15→17:07)
[2021-01-16] MEDS: ZOSYN 3.375GM +NS 50ML IV SCH ×3 (02:15→17:07)
[2021-01-16 05:51] LABS: BASOPHILS % (AUTO) 0.4 % (0.0-5.0); EOSINOPHILS % (AUTO) 4.7 % (0.0-8.0); LYMPHOCYTES % (AUTO) 13.3 % (21.0-51.0); MEAN CORPUSCULAR HEMOGLOBIN 31.5 pg (27.0-33.0); MEAN CORPUSCULAR HGB CONC 33.8 g/dL (32.0-36.0); MEAN CORPUSCULAR VOLUME 93.1 fL (79-99); MONOCYTES % (AUTO) 10.8 % (3.0-13.0); NEUTROPHILS % (AUTO) 70.1 % (40.0-77.0); PLATELET COUNT (AUTO) 78 K/uL (130-400); RED BLOOD CELL COUNT(AUTO) 2.16 MIL/uL (4.50-6.20); RED CELL DISTRIBUTION WIDTH 13.6 % (11.0-15.5); WHITE BLOOD COUNT (AUTO) 7.7 K/uL (4.8-10.8)
[2021-01-16 05:59] LABS: % IRON SATURATION 123.8 % (30-44)
[2021-01-16 06:02] LABS: HEMATOCRIT 20.1 % (42-54)
[2021-01-16 06:03] LABS: B-TYPE NATRIURETIC PEPTIDE 155 pg/mL (0-100)
[2021-01-16 06:15] LABS: INR 2.1 (0.85-1.15); PROTHROMBIN TIME 21.4 SEC (9.6-11.6)
[2021-01-16 06:16] LABS: PARTIAL THROMBOPLASTIN TIME 64.1 SEC (26.3-35.5)
[2021-01-16 06:25] LABS: BILIRUBIN,TOTAL 7.1 mg/dL (0.2-1.0); CREATININE 1.1 mg/dL (0.5-1.5); POTASSIUM 4.1 mmol/L (3.5-5.1); THYROID STIMULATING HORMONE 0.45 uIU/mL (0.36-3.74); TOTAL PROTEIN, SERUM 5.4 g/dL (6.0-8.3)
[2021-01-16] MEDS ORDERED: PHYTONADIONE 10 MG in 0.9%NACL 50ML 50 ML IVPB SCH (09:00)
[2021-01-16] MEDS: MIDODRINE HCL 5 MG TABLET PO SCH ×3 (09:00→21:00)
[2021-01-16] MEDS ORDERED: PHYTONADIONE 10 MG/1 ML AMP SQ ONE (09:00)
[2021-01-16] MEDS ORDERED: PHYTONADIONE 10 MG/1 ML AMP IM SCH (09:00)
[2021-01-16 10:01] LABS: AMYLASE 25 U/L (25-115); LIPASE 59 U/L (114-286)
[2021-01-16] MEDS: FOLIC ACID 1 MG TABLET PO SCH (10:16)
[2021-01-16] MEDS: PANTOPRAZOLE 40 MG TAB DR PO SCH (10:16)
[2021-01-16] MEDS: THIAMINE HCL 100 MG/ML 2ML VIAL IM SCH (10:16)
[2021-01-16] MEDS: MULTIVITAMIN TABLET PO SCH (10:16)
[2021-01-16] MEDS: OCTREOTIDE ACETATE 100 MCG/ML AMP SQ SCH ×3 (10:27→21:51)
[2021-01-16] MEDS ORDERED: LACT10SO76 PO (11:54)
[2021-01-16] MEDS ORDERED: PROP20TA7 PO (11:54)
[2021-01-16 13:59] LABS: AMYLASE 27 U/L (25-115); LIPASE 119 U/L (114-286)
[2021-01-16] MEDS ORDERED: CEFTRIAXONE 1G VIAL ONE (14:25)
[2021-01-16] MEDS ORDERED: LACTULOSE 20 GM/30 ML UDCUP PO ONE (16:00)
[2021-01-16] MEDS ORDERED: LACTULOSE 20 GM/30 ML UDCUP ONE (17:10)
[2021-01-16 19:22] LABS: HEMATOCRIT 25.8 % (42-54)
[2021-01-16] MEDS: LACTULOSE 20 GM/30 ML UDCUP PO SCH (21:51)
[2021-01-17] VITALS (12 sets, daily range): BP systolic 104–122; BP diastolic 53–78
[2021-01-17] MEDS: ZOSYN 3.375GM +NS 50ML IV SCH ×3 (01:01→21:07)
[2021-01-17] MEDS: 0.9%NACL 50ML 50 ML IV SCH ×3 (01:01→21:07)
[2021-01-17] MEDS: MULTIVITAMIN TABLET PO SCH (08:57)
[2021-01-17] MEDS: THIAMINE HCL 100 MG/ML 2ML VIAL IM SCH (08:57)
[2021-01-17] MEDS: FOLIC ACID 1 MG TABLET PO SCH (08:57)
[2021-01-17] MEDS: PANTOPRAZOLE 40 MG TAB DR PO SCH (08:58)
[2021-01-17] MEDS: LACTULOSE 20 GM/30 ML UDCUP PO SCH ×2 (08:58→21:07)
[2021-01-17] MEDS: OCTREOTIDE ACETATE 100 MCG/ML AMP SQ SCH ×3 (08:58→21:07)
[2021-01-17] MEDS: MIDODRINE HCL 5 MG TABLET PO SCH ×3 (09:00→21:07)
[2021-01-17 09:46] LABS: ALBUMIN 2.2 g/dL (3.5-5.0); BILIRUBIN,TOTAL 6.6 mg/dL (0.2-1.0); CREATININE 1.1 mg/dL (0.5-1.5); INR 1.61 (0.85-1.15); POTASSIUM 3.9 mmol/L (3.5-5.1); PROTHROMBIN TIME 16.8 SEC (9.6-11.6)
[2021-01-17 09:47] LABS: PARTIAL THROMBOPLASTIN TIME 44.8 SEC (26.3-35.5)
[2021-01-17 09:49] LABS: RED BLOOD CELL COUNT(AUTO) 2.76 MIL/uL (4.50-6.20); WHITE BLOOD COUNT (AUTO) 5.7 K/uL (4.8-10.8)
[2021-01-17 09:50] LABS: BASOPHILS % (AUTO) 0.4 % (0.0-5.0); EOSINOPHILS % (AUTO) 11.3 % (0.0-8.0); HEMATOCRIT 25.7 % (42-54); LYMPHOCYTES % (AUTO) 19.2 % (21.0-51.0); MEAN CORPUSCULAR HEMOGLOBIN 30.8 pg (27.0-33.0); MEAN CORPUSCULAR HGB CONC 33.1 g/dL (32.0-36.0); MEAN CORPUSCULAR VOLUME 93.1 fL (79-99); MONOCYTES % (AUTO) 12.1 % (3.0-13.0); NEUTROPHILS % (AUTO) 55.9 % (40.0-77.0); PLATELET COUNT (AUTO) 87 K/uL (130-400)
[2021-01-17] MEDS ORDERED: ALBUMIN (HUMAN) 25% 200 ML IV ONE (09:54)
[2021-01-18] VITALS (10 sets, daily range): BP systolic 101–126; BP diastolic 56–75
[2021-01-18] MEDS: 0.9%NACL 50ML 50 ML IV SCH ×3 (05:17→21:00)
[2021-01-18] MEDS: ZOSYN 3.375GM +NS 50ML IV SCH ×3 (05:17→22:24)
[2021-01-18 07:22] LABS: BASOPHILS % (AUTO) 0.8 % (0.0-5.0); EOSINOPHILS % (AUTO) 12.5 % (0.0-8.0); HEMATOCRIT 24.5 % (42-54); LYMPHOCYTES % (AUTO) 23.6 % (21.0-51.0); MEAN CORPUSCULAR HEMOGLOBIN 30.5 pg (27.0-33.0); MEAN CORPUSCULAR HGB CONC 33.1 g/dL (32.0-36.0); MEAN CORPUSCULAR VOLUME 92.1 fL (79-99); MONOCYTES % (AUTO) 16.6 % (3.0-13.0); NEUTROPHILS % (AUTO) 45.3 % (40.0-77.0); PLATELET COUNT (AUTO) 84 K/uL (130-400); RED BLOOD CELL COUNT(AUTO) 2.66 MIL/uL (4.50-6.20); WHITE BLOOD COUNT (AUTO) 4.9 K/uL (4.8-10.8)
[2021-01-18 07:42] LABS: ALBUMIN 2.1 g/dL (3.5-5.0); BILIRUBIN,TOTAL 4.6 mg/dL (0.2-1.0); POTASSIUM 3.5 mmol/L (3.5-5.1); TOTAL PROTEIN, SERUM 5.3 g/dL (6.0-8.3)
[2021-01-18] MEDS: THIAMINE HCL 100 MG/ML 2ML VIAL IM SCH (09:00)
[2021-01-18] MEDS: LACTULOSE 20 GM/30 ML UDCUP PO SCH ×2 (09:00→22:17)
[2021-01-18] MEDS: PANTOPRAZOLE 40 MG TAB DR PO SCH (09:00)
[2021-01-18] MEDS: MIDODRINE HCL 5 MG TABLET PO SCH ×3 (09:00→22:16)
[2021-01-18] MEDS: FOLIC ACID 1 MG TABLET PO SCH (09:00)
[2021-01-18] MEDS: OCTREOTIDE ACETATE 100 MCG/ML AMP SQ SCH ×3 (09:00→22:25)
[2021-01-18] MEDS: MULTIVITAMIN TABLET PO SCH (09:00)
[2021-01-18] MEDS ORDERED: ALBUMIN (HUMAN) 25% 100 ML IV ONE (11:08)
[2021-01-18 16:12] LABS: SPECIMENTYPE,BODY FLUID PLEURAL
[2021-01-18 16:13] LABS: APPEARANCE BODY FLUID CLOUDY (CLEAR); BODY FLUID WBC 305 /cu. mm.; COLOR,BODY FLUID DARK YELLOW (LT YELLOW); TOTAL VOLUME,BODY FLUID 2150 mL
[2021-01-18 16:14] LABS: BODY FLUID RBC 3185 /cu. mm.
[2021-01-18 18:12] LABS: BF LYMPHOCYTE 10 %; BF MONOCYTE 1 %
[2021-01-19 00:16] VITALS: BP 127/71
[2021-01-19 04:16] VITALS: BP 115/72
[2021-01-19] MEDS: ZOSYN 3.375GM +NS 50ML IV SCH ×3 (04:45→20:42)
[2021-01-19] MEDS: 0.9%NACL 50ML 50 ML IV SCH ×3 (04:45→20:42)
[2021-01-19 05:42] LABS: BASOPHILS % (AUTO) 1.3 % (0.0-5.0); EOSINOPHILS % (AUTO) 10.5 % (0.0-8.0); HEMATOCRIT 24.7 % (42-54); LYMPHOCYTES % (AUTO) 25.6 % (21.0-51.0); MEAN CORPUSCULAR HEMOGLOBIN 30.5 pg (27.0-33.0); MEAN CORPUSCULAR HGB CONC 32.8 g/dL (32.0-36.0); MEAN CORPUSCULAR VOLUME 92.9 fL (79-99); MONOCYTES % (AUTO) 13.2 % (3.0-13.0); NEUTROPHILS % (AUTO) 48.3 % (40.0-77.0); PLATELET COUNT (AUTO) 102 K/uL (130-400); RED BLOOD CELL COUNT(AUTO) 2.66 MIL/uL (4.50-6.20); RED CELL DISTRIBUTION WIDTH 14.1 % (11.0-15.5); WHITE BLOOD COUNT (AUTO) 6.2 K/uL (4.8-10.8)
[2021-01-19 06:05] LABS: CREATININE 0.9 mg/dL (0.5-1.5); MAGNESIUM 1.7 mg/dL (1.80-2.40); POTASSIUM 3.6 mmol/L (3.5-5.1)
[2021-01-19 08:00] VITALS: BP 120/68
[2021-01-19] MEDS: MIDODRINE HCL 5 MG TABLET PO SCH ×3 (08:07→21:26)
[2021-01-19] MEDS: MULTIVITAMIN TABLET PO SCH (08:07)
[2021-01-19] MEDS: LACTULOSE 20 GM/30 ML UDCUP PO SCH ×2 (08:07→20:42)
[2021-01-19] MEDS: PANTOPRAZOLE 40 MG TAB DR PO SCH (08:07)
[2021-01-19 11:55] VITALS: BP 123/73
[2021-01-19] MEDS: OCTREOTIDE ACETATE 100 MCG/ML AMP SQ SCH ×3 (11:56→21:00)
[2021-01-19] MEDS ORDERED: POTASSIUM CHLORIDE 10MEQ SR TAB PO SCH (14:30)
[2021-01-19] MEDS ORDERED: MAGNESIUM CHLORIDE 70 MG TABLET.SA PO SCH (14:30)
[2021-01-19 16:00] VITALS: BP 141/82
[2021-01-19 20:00] VITALS: BP 132/74
[2021-01-20] VITALS (12 sets, daily range): BP systolic 114–130; BP diastolic 62–79
[2021-01-20] MEDS: 0.9%NACL 50ML 50 ML IV SCH ×3 (04:32→21:48)
[2021-01-20] MEDS: ZOSYN 3.375GM +NS 50ML IV SCH ×3 (04:32→21:48)
[2021-01-20] MEDS: PANTOPRAZOLE 40 MG TAB DR PO SCH (11:46)
[2021-01-20] MEDS: LACTULOSE 20 GM/30 ML UDCUP PO SCH ×2 (11:46→21:48)
[2021-01-20] MEDS: MIDODRINE HCL 5 MG TABLET PO SCH ×3 (11:46→21:48)
[2021-01-20] MEDS: FUROSEMIDE 20 MG TABLET PO SCH (11:47)
[2021-01-20] MEDS: SPIRONOLACTONE 25 MG TAB PO SCH (11:47)
[2021-01-20] MEDS: MULTIVITAMIN TABLET PO SCH (11:47)
[2021-01-20] MEDS: OCTREOTIDE ACETATE 100 MCG/ML AMP SQ SCH ×3 (11:48→21:48)
[2021-01-20 15:49] LABS: AMYLASE,BODY FLUID 13 U/L; LIPASE,BODY FLUID 33 U/L; TRIGLYCERIDES,BODY FLUID < 15 mg/dL
[2021-01-20 15:52] LABS: CHOLESTEROL,BODY FLUID < 50 mg/dL
[2021-01-20 16:04] LABS: APPEARANCE BODY FLUID SLIGHTLY CLOUDY (CLEAR); BODY FLUID WBC 139 /cu. mm.; COLOR,BODY FLUID YELLOW (LT YELLOW); SPECIMENTYPE,BODY FLUID ASCITES; TOTAL VOLUME,BODY FLUID 1600 mL
[2021-01-20 16:05] LABS: BODY FLUID RBC 133 /cu. mm.; PH, BODY FLUID 7
[2021-01-20 16:24] LABS: BF BASOPHIL 1 %; BF EOSINOPHIL 1 %; BF LYMPHOCYTE 63 %; BF MESOTHELIAL 18 %; BF MONOCYTE 3 %; BF OTHER CELLS 2
[2021-01-21] VITALS: BP 120/68
[2021-01-21 04:00] VITALS: BP 109/73
[2021-01-21] MEDS: 0.9%NACL 50ML 50 ML IV SCH ×2 (04:31→12:20)
[2021-01-21] MEDS: ZOSYN 3.375GM +NS 50ML IV SCH (04:31)
[2021-01-21 07:50] VITALS: BP 108/67
[2021-01-21] MEDS: SPIRONOLACTONE 25 MG TAB PO SCH (09:00)
[2021-01-21] MEDS: OCTREOTIDE ACETATE 100 MCG/ML AMP SQ SCH ×3 (11:17→20:21)
[2021-01-21] MEDS: MIDODRINE HCL 5 MG TABLET PO SCH ×3 (11:17→20:21)
[2021-01-21] MEDS: LACTULOSE 20 GM/30 ML UDCUP PO SCH ×2 (11:17→20:22)
[2021-01-21] MEDS: MEROPENEM 1 GM VIAL IVP SCH ×2 (11:17→18:02)
[2021-01-21] MEDS: FUROSEMIDE 20 MG TABLET PO SCH (11:18)
[2021-01-21] MEDS: MULTIVITAMIN TABLET PO SCH (11:22)
[2021-01-21 11:45] VITALS: BP 118/64
[2021-01-21] MEDS: PANTOPRAZOLE 40 MG TAB DR PO SCH (12:23)
[2021-01-21 16:12] VITALS: BP 110/69
[2021-01-21 19:00] VITALS: BP 121/69
[2021-01-22] VITALS: BP 115/74
[2021-01-22] MEDS: MEROPENEM 1 GM VIAL IVP SCH ×3 (03:23→20:16)
[2021-01-22 04:00] VITALS: BP 129/80
[2021-01-22 08:00] VITALS: BP 137/80
[2021-01-22] MEDS: LACTULOSE 20 GM/30 ML UDCUP PO SCH ×2 (08:03→20:18)
[2021-01-22] MEDS: MULTIVITAMIN TABLET PO SCH (08:05)
[2021-01-22] MEDS: OCTREOTIDE ACETATE 100 MCG/ML AMP SQ SCH ×3 (08:05→20:18)
[2021-01-22] MEDS: FUROSEMIDE 20 MG TABLET PO SCH (08:06)
[2021-01-22] MEDS: SPIRONOLACTONE 25 MG TAB PO SCH (08:06)
[2021-01-22] MEDS: PANTOPRAZOLE 40 MG TAB DR PO SCH (08:06)
[2021-01-22] MEDS: MIDODRINE HCL 5 MG TABLET PO SCH ×3 (08:06→20:18)
[2021-01-22 12:00] VITALS: BP 129/75
[2021-01-22 16:00] VITALS: BP 129/77
[2021-01-22 19:00] VITALS: BP 130/76
[2021-01-23] VITALS: BP 149/62
[2021-01-23] MEDS: MEROPENEM 1 GM VIAL IVP SCH ×3 (03:09→20:03)
[2021-01-23 04:00] VITALS: BP 123/78
[2021-01-23 08:00] VITALS: BP 128/75
[2021-01-23] MEDS: LACTULOSE 20 GM/30 ML UDCUP PO SCH ×2 (09:02→20:25)
[2021-01-23] MEDS: FUROSEMIDE 20 MG TABLET PO SCH (09:02)
[2021-01-23] MEDS: MULTIVITAMIN TABLET PO SCH (09:03)
[2021-01-23] MEDS: SPIRONOLACTONE 25 MG TAB PO SCH (09:03)
[2021-01-23] MEDS: OCTREOTIDE ACETATE 100 MCG/ML AMP SQ SCH ×3 (09:03→20:25)
[2021-01-23] MEDS: PANTOPRAZOLE 40 MG TAB DR PO SCH (09:03)
[2021-01-23] MEDS: MIDODRINE HCL 5 MG TABLET PO SCH ×3 (09:03→20:25)
[2021-01-23 11:59] VITALS: BP 151/80
[2021-01-23 16:00] VITALS: BP 131/82
[2021-01-23 19:00] VITALS: BP 122/73
[2021-01-24] VITALS (7 sets, daily range): BP systolic 117–135; BP diastolic 65–83
[2021-01-24] MEDS: MEROPENEM 1 GM VIAL IVP SCH ×3 (02:12→18:07)
[2021-01-24 09:21] LABS: EOSINOPHILS % (AUTO) 11.3 % (0.0-8.0); LYMPHOCYTES % (AUTO) 32.8 % (21.0-51.0); MEAN CORPUSCULAR HEMOGLOBIN 30.4 pg (27.0-33.0); MEAN CORPUSCULAR HGB CONC 32.5 g/dL (32.0-36.0); MEAN CORPUSCULAR VOLUME 93.6 fL (79-99); MONOCYTES % (AUTO) 7.4 % (3.0-13.0); NEUTROPHILS % (AUTO) 47.1 % (40.0-77.0); PLATELET COUNT (AUTO) 92 K/uL (130-400); RED BLOOD CELL COUNT(AUTO) 2.99 MIL/uL (4.50-6.20); WHITE BLOOD COUNT (AUTO) 6.9 K/uL (4.8-10.8)
[2021-01-24 09:39] LABS: ALBUMIN 2.3 g/dL (3.5-5.0); BILIRUBIN,TOTAL 6.4 mg/dL (0.2-1.0); CREATININE 0.9 mg/dL (0.5-1.5); MAGNESIUM 1.6 mg/dL (1.80-2.40); POTASSIUM 3.3 mmol/L (3.5-5.1); TOTAL PROTEIN, SERUM 6.5 g/dL (6.0-8.3)
[2021-01-24] MEDS: OCTREOTIDE ACETATE 100 MCG/ML AMP SQ SCH ×3 (10:49→21:17)
[2021-01-24] MEDS: PANTOPRAZOLE 40 MG TAB DR PO SCH (10:50)
[2021-01-24] MEDS: MULTIVITAMIN TABLET PO SCH (10:50)
[2021-01-24] MEDS: FUROSEMIDE 20 MG TABLET PO SCH (10:50)
[2021-01-24] MEDS: LACTULOSE 20 GM/30 ML UDCUP PO SCH ×2 (10:50→21:17)
[2021-01-24] MEDS: MIDODRINE HCL 5 MG TABLET PO SCH ×3 (10:50→21:17)
[2021-01-24] MEDS: SPIRONOLACTONE 25 MG TAB PO SCH (10:52)
[2021-01-25] MEDS: MEROPENEM 1 GM VIAL IVP SCH ×3 (01:42→17:50)
[2021-01-25 03:55] VITALS: BP 128/77
[2021-01-25 06:48] LABS: CREATININE 0.9 mg/dL (0.5-1.5); MAGNESIUM 1.5 mg/dL (1.80-2.40); POTASSIUM 3.8 mmol/L (3.5-5.1)
[2021-01-25 08:00] VITALS: BP 104/65
[2021-01-25] MEDS: LACTULOSE 20 GM/30 ML UDCUP PO SCH ×2 (09:48→21:18)
[2021-01-25] MEDS: SPIRONOLACTONE 25 MG TAB PO SCH (09:48)
[2021-01-25] MEDS: PANTOPRAZOLE 40 MG TAB DR PO SCH (09:48)
[2021-01-25] MEDS: OCTREOTIDE ACETATE 100 MCG/ML AMP SQ SCH ×3 (09:48→21:18)
[2021-01-25] MEDS: MULTIVITAMIN TABLET PO SCH (09:49)
[2021-01-25] MEDS: FUROSEMIDE 20 MG TABLET PO SCH (09:49)
[2021-01-25] MEDS: MIDODRINE HCL 5 MG TABLET PO SCH ×3 (09:49→21:18)
[2021-01-25] MEDS ORDERED: KCL 20 MEQ ERTAB PO ONE (10:30)
[2021-01-25 12:00] VITALS: BP 111/72
[2021-01-25] MEDS ORDERED: MAGNESIUM OXIDE 400 MG TABLET PO SCH (13:30)
[2021-01-25] MEDS ORDERED: KCL 20 MEQ ERTAB PO SCH (14:00)
[2021-01-25] MEDS: MAGNESIUM 2GM PREMIX 50ML 50 ML IV SCH (14:02)
[2021-01-25 16:00] VITALS: BP 123/72
[2021-01-25 19:15] VITALS: BP 132/88
[2021-01-25 23:43] VITALS: BP 121/72
[2021-01-26] MEDS: MEROPENEM 1 GM VIAL IVP SCH ×3 (02:14→18:11)
[2021-01-26 03:38] VITALS: BP 123/74
[2021-01-26 06:48] LABS: MAGNESIUM 1.6 mg/dL (1.80-2.40); POTASSIUM 3.7 mmol/L (3.5-5.1)
[2021-01-26 08:34] VITALS: BP 134/70
[2021-01-26] MEDS: MIDODRINE HCL 5 MG TABLET PO SCH ×3 (08:39→20:26)
[2021-01-26] MEDS: MAGNESIUM 2GM PREMIX 50ML 50 ML IV SCH (08:40)
[2021-01-26] MEDS: PANTOPRAZOLE 40 MG TAB DR PO SCH (08:41)
[2021-01-26] MEDS: SPIRONOLACTONE 25 MG TAB PO SCH (08:41)
[2021-01-26] MEDS: OCTREOTIDE ACETATE 100 MCG/ML AMP SQ SCH ×3 (08:41→20:26)
[2021-01-26] MEDS: LACTULOSE 20 GM/30 ML UDCUP PO SCH ×2 (08:41→20:26)
[2021-01-26] MEDS: MULTIVITAMIN TABLET PO SCH (08:41)
[2021-01-26] MEDS: FUROSEMIDE 20 MG TABLET PO SCH (08:41)
[2021-01-26 12:05] VITALS: BP 141/78
[2021-01-26 16:49] VITALS: BP 106/60
[2021-01-26 20:17] VITALS: BP 135/67
[2021-01-26 23:17] VITALS: BP 111/66
[2021-01-27] MEDS: MEROPENEM 1 GM VIAL IVP SCH ×3 (03:11→18:46)
[2021-01-27 03:44] VITALS: BP 120/71
[2021-01-27 07:30] VITALS: BP 138/85
[2021-01-27] MEDS: PANTOPRAZOLE 40 MG TAB DR PO SCH (08:30)
[2021-01-27] MEDS: MULTIVITAMIN TABLET PO SCH (08:30)
[2021-01-27] MEDS: LACTULOSE 20 GM/30 ML UDCUP PO SCH ×2 (08:31→21:59)
[2021-01-27] MEDS: OCTREOTIDE ACETATE 100 MCG/ML AMP SQ SCH ×3 (08:31→21:59)
[2021-01-27] MEDS: SPIRONOLACTONE 25 MG TAB PO SCH (08:31)
[2021-01-27] MEDS: FUROSEMIDE 20 MG TABLET PO SCH (08:31)
[2021-01-27] MEDS: MIDODRINE HCL 5 MG TABLET PO SCH ×3 (08:32→21:58)
[2021-01-27 09:23] LABS: BASOPHILS % (AUTO) 1.1 % (0.0-5.0); EOSINOPHILS % (AUTO) 12.1 % (0.0-8.0); HEMATOCRIT 27.4 % (42-54); LYMPHOCYTES % (AUTO) 31.9 % (21.0-51.0); MEAN CORPUSCULAR HEMOGLOBIN 30.2 pg (27.0-33.0); MEAN CORPUSCULAR HGB CONC 32.1 g/dL (32.0-36.0); MEAN CORPUSCULAR VOLUME 94.2 fL (79-99); MONOCYTES % (AUTO) 10.1 % (3.0-13.0); NEUTROPHILS % (AUTO) 44.3 % (40.0-77.0); PLATELET COUNT (AUTO) 84 K/uL (130-400); RED BLOOD CELL COUNT(AUTO) 2.91 MIL/uL (4.50-6.20); RED CELL DISTRIBUTION WIDTH 14.6 % (11.0-15.5); WHITE BLOOD COUNT (AUTO) 5.6 K/uL (4.8-10.8)
[2021-01-27 09:39] LABS: CREATININE 0.8 mg/dL (0.5-1.5)
[2021-01-27 09:44] LABS: ALBUMIN 2.3 g/dL (3.5-5.0); BILIRUBIN,TOTAL 6.7 mg/dL (0.2-1.0); TOTAL PROTEIN, SERUM 6.8 g/dL (6.0-8.3)
[2021-01-27 11:00] VITALS: BP 126/75
[2021-01-27 16:00] VITALS: BP 121/78
[2021-01-27] MEDS: DOCUSATE SODIUM 100 MG CAP PO SCH (18:46)
[2021-01-27 20:00] VITALS: BP 109/61
[2021-01-28] VITALS: BP 103/59
[2021-01-28] MEDS: MEROPENEM 1 GM VIAL IVP SCH (02:46)
[2021-01-28 03:53] LABS: BASOPHILS % (AUTO) 1.3 % (0.0-5.0); EOSINOPHILS % (AUTO) 12.3 % (0.0-8.0); HEMATOCRIT 23.9 % (42-54); LYMPHOCYTES % (AUTO) 32.8 % (21.0-51.0); MEAN CORPUSCULAR HEMOGLOBIN 30.5 pg (27.0-33.0); MEAN CORPUSCULAR HGB CONC 33.1 g/dL (32.0-36.0); MEAN CORPUSCULAR VOLUME 92.3 fL (79-99); MONOCYTES % (AUTO) 12.2 % (3.0-13.0); NEUTROPHILS % (AUTO) 41.1 % (40.0-77.0); PLATELET COUNT (AUTO) 79 K/uL (130-400); RED BLOOD CELL COUNT(AUTO) 2.59 MIL/uL (4.50-6.20); RED CELL DISTRIBUTION WIDTH 14.6 % (11.0-15.5); WHITE BLOOD COUNT (AUTO) 6.3 K/uL (4.8-10.8)
[2021-01-28 04:00] VITALS: BP 102/67
[2021-01-28 04:00] LABS: CREATININE 0.9 mg/dL (0.5-1.5)
[2021-01-28 07:30] VITALS: BP 110/66
[2021-01-28] MEDS: OCTREOTIDE ACETATE 100 MCG/ML AMP SQ SCH ×2 (07:33→12:33)
[2021-01-28] MEDS: MIDODRINE HCL 5 MG TABLET PO SCH ×2 (07:33→12:33)
[2021-01-28] MEDS: PANTOPRAZOLE 40 MG TAB DR PO SCH (07:33)
[2021-01-28] MEDS: SPIRONOLACTONE 25 MG TAB PO SCH (07:33)
[2021-01-28] MEDS: LACTULOSE 20 GM/30 ML UDCUP PO SCH (07:33)
[2021-01-28] MEDS: DOCUSATE SODIUM 100 MG CAP PO SCH (07:33)
[2021-01-28] MEDS: MULTIVITAMIN TABLET PO SCH (07:33)
[2021-01-28] MEDS: FUROSEMIDE 20 MG TABLET PO SCH (07:33)
[2021-01-28] MEDS ORDERED: SULFAMETHOX-TMP DS 800/160 TAB PO SCH (09:00)
[2021-01-28 11:00] VITALS: BP 118/64
[2021-01-28] MEDS ORDERED: FUROSEMIDE 20 MG TABLET PO SCH (12:08)
[2021-01-28] MEDS ORDERED: SULF1TAB42 PO (14:17)
[2021-01-28] MEDS ORDERED: FURO40TA7 PO (14:21)
[2021-01-28] MEDS ORDERED: MIDO5TAB4 PO (14:21)
[2021-01-28] MEDS ORDERED: LACT10SO9 PO (14:21)
== END 2021-01-28 16:30 | disposition home or self-care (01) | DRG 871 ==
LOC: EDH 08:55 → EDHIP 08:56 → 4CH 01-18 23:45
PROVIDERS: ADMIT Internal Medicine; ATTEND Internal Medicine
PROC: 0W993ZZ Drainage of Right Pleural Cavity, Percutaneous Approach (ICD-10-PCS; 2021-01-15)
PROC: 30233K1 Transfusion of Nonautologous Frozen Plasma into Peripheral Vein, Percutaneous Approach (ICD-10-PCS; 2021-01-16)
PROC: 30233N1 Transfusion of Nonautologous Red Blood Cells into Peripheral Vein, Percutaneous Approach (ICD-10-PCS; 2021-01-16)
PROC: 0W993ZZ Drainage of Right Pleural Cavity, Percutaneous Approach (ICD-10-PCS; 2021-01-17)
PROC: 0W993ZZ Drainage of Right Pleural Cavity, Percutaneous Approach (ICD-10-PCS; principal; 2021-01-18)
PROC: 0W993ZZ Drainage of Right Pleural Cavity, Percutaneous Approach (ICD-10-PCS; 2021-01-20)
DX: A41.51 Sepsis due to Escherichia coli [E. coli] (principal); K65.2 Spontaneous bacterial peritonitis; N39.0 Urinary tract infection, site not specified; E87.1 Hypo-osmolality and hyponatremia; K76.6 Portal hypertension; J90 Pleural effusion, not elsewhere classified; F10.239 Alcohol dependence with withdrawal, unspecified; J94.8 Other specified pleural conditions; D68.9 Coagulation defect, unspecified; Z16.12 Extended spectrum beta lactamase (ESBL) resistance; D64.9 Anemia, unspecified; K70.31 Alcoholic cirrhosis of liver with ascites; D69.59 Other secondary thrombocytopenia; B96.89 Other specified bacterial agents as the cause of diseases classified elsewhere; E66.9 Obesity, unspecified; E87.6 Hypokalemia; Z20.822 Contact with and (suspected) exposure to COVID-19; Z68.34 Body mass index [BMI] 34.0-34.9, adult; Z82.49 Family history of ischemic heart disease and other diseases of the circulatory system
CPT/HCPCS: 36415; 36600; 49083; 71045; 76604; 76705; 80048; 80053; 80305; 81001; 82140; 82150; 82270; 82465; 82607; 82728; 82746; 82803; 82945; 82948; 83540; 83550; 83605; 83615; 83690; 83735; 83880; 83986; 84100; 84132; 84145; 84157; 84443; 84478; 85014; 85018; 85025; 85045; 85610; 85730; 86850; 86900; 86901; 86923; 86927; 87040; 87071; 87077; 87088; 87186; 87205; 87426; 87804; 89051; 93005; 93306; 93356; 96365; C1729; G0378; J0696; J1815; J1940; J2185; J2354; J2543; J3411; J3430; J3475; J3490; J7030; P9016; P9017; P9046

== ENCOUNTER 2021-02-03 12:04 | Inpatient (IN) | payer OTHER ==
[~2021-02-03] VITALS: Ht 172.7 cm; Wt 102.5 kg
[~2021-02-03 12:04] MED LIST changes: -CEFD300C3 PO; +FURO40TA7 PO; -LACT PO; +LACT10SO9 PO; -LIB25 PO; +MIDO5TAB4 PO; +SULF1TAB42 PO
[2021-02-03 12:05] VITALS: BP 94/60
[2021-02-03 14:27] VITALS: BP 90/58
[2021-02-03] MEDS ORDERED: LACTATED RINGERS 1000ML 500 ML IV ONE (15:00)
[2021-02-03 15:05] LABS: BASOPHILS % (AUTO) 1.7 % (0.0-5.0); EOSINOPHILS % (AUTO) 18.1 % (0.0-8.0); HEMATOCRIT 25.3 % (42-54); LYMPHOCYTES % (AUTO) 32.2 % (21.0-51.0); MEAN CORPUSCULAR VOLUME 91.3 fL (79-99); MONOCYTES % (AUTO) 10.5 % (3.0-13.0); NEUTROPHILS % (AUTO) 37.3 % (40.0-77.0); PLATELET COUNT (AUTO) 147 K/uL (130-400); RED BLOOD CELL COUNT(AUTO) 2.77 MIL/uL (4.50-6.20); RED CELL DISTRIBUTION WIDTH 14.6 % (11.0-15.5); WHITE BLOOD COUNT (AUTO) 5.9 K/uL (4.8-10.8)
[2021-02-03 15:10] LABS: CREATININE 1.3 mg/dL (0.5-1.5)
[2021-02-03 15:14] LABS: ALBUMIN 2.1 g/dL (3.5-5.0); MAGNESIUM 1.8 mg/dL (1.80-2.40); TOTAL PROTEIN, SERUM 6.7 g/dL (6.0-8.3)
[2021-02-03 15:24] LABS: B-TYPE NATRIURETIC PEPTIDE 625 pg/mL (0-100)
[2021-02-03] MEDS ORDERED: ACETAMINOPHEN 325 MG TAB PO PRN ×2 (18:30)
[2021-02-03] MEDS ORDERED: ONDANSETRON 4MG INJ IV PRN (18:30)
[2021-02-03 19:11] VITALS: BP 99/64
[2021-02-03 19:37] VITALS: BP 106/63
[2021-02-03 20:12] LABS: APPEARANCE,URINE Cloudy (CLEAR); BILIRUBIN,URINE Moderate (NEGATIVE); COLOR,URINE Dark Yellow (YELLOW); GLUCOSE, URINE (UA) Negative (NEGATIVE); KETONES,URINE Trace mg/dL (NEGATIVE); LEUKOCYTE ESTERASE ,URINE Trace (NEGATIVE); NITRATE,URINE Negative (NEGATIVE); OCCULT BLOOD,URINE Negative (NEGATIVE); PROTEIN,URINE Trace mg/dL (NEGATIVE)
[2021-02-03] MEDS: FUROSEMIDE 20MG VIAL IV SCH (20:22)
[2021-02-03] MEDS: CEFTRIAXONE 1G VIAL IV SCH (20:22)
[2021-02-03] MEDS: MIDODRINE HCL 5 MG TABLET PO SCH (20:22)
[2021-02-03] MEDS: LACTULOSE 20 GM/30 ML UDCUP PO SCH (20:22)
[2021-02-03] MEDS: OCTREOTIDE ACETATE 100 MCG/ML AMP SQ SCH (20:22)
[2021-02-03 20:33] LABS: BACTERIA,URINE Few /HPF (None Seen); RBC,URINE 0-1 /HPF (0-1); SQUAMOUS EPITHELIAL CELL,UR Rare /HPF (0-2)
[2021-02-03] MEDS: SPIRONOLACTONE 25 MG TAB PO SCH (21:00)
[2021-02-03 21:55] VITALS: BP 95/53
[2021-02-03 23:21] VITALS: BP 94/47
[2021-02-04] VITALS (14 sets, daily range): BP systolic 85–107; BP diastolic 44–58
[2021-02-04] MEDS: FUROSEMIDE 20MG VIAL IV SCH ×3 (05:02→16:37)
[2021-02-04 06:29] LABS: HEMATOCRIT 26.1 % (42-54); LYMPHOCYTES % (AUTO) 34.9 % (21.0-51.0); MEAN CORPUSCULAR HEMOGLOBIN 29.9 pg (27.0-33.0); MEAN CORPUSCULAR HGB CONC 33.3 g/dL (32.0-36.0); MEAN CORPUSCULAR VOLUME 89.7 fL (79-99); MONOCYTES % (AUTO) 9.6 % (3.0-13.0); NEUTROPHILS % (AUTO) 36.2 % (40.0-77.0); PLATELET COUNT (AUTO) 158 K/uL (130-400); RED BLOOD CELL COUNT(AUTO) 2.91 MIL/uL (4.50-6.20); RED CELL DISTRIBUTION WIDTH 14.6 % (11.0-15.5); WHITE BLOOD COUNT (AUTO) 6.6 K/uL (4.8-10.8)
[2021-02-04 06:45] LABS: INR 1.59 (0.85-1.15); PROTHROMBIN TIME 16.6 SEC (9.6-11.6)
[2021-02-04 06:46] LABS: ALBUMIN 2.2 g/dL (3.5-5.0); BILIRUBIN,TOTAL 6.2 mg/dL (0.2-1.0); CREATININE 1.1 mg/dL (0.5-1.5); PARTIAL THROMBOPLASTIN TIME 43.3 SEC (26.3-35.5); POTASSIUM 4.1 mmol/L (3.5-5.1); TOTAL PROTEIN, SERUM 6.7 g/dL (6.0-8.3)
[2021-02-04] MEDS: MIDODRINE HCL 5 MG TABLET PO SCH ×3 (08:41→20:14)
[2021-02-04] MEDS: LACTULOSE 20 GM/30 ML UDCUP PO SCH ×2 (08:41→20:14)
[2021-02-04] MEDS: OCTREOTIDE ACETATE 100 MCG/ML AMP SQ SCH ×3 (08:41→20:14)
[2021-02-04] MEDS: SPIRONOLACTONE 25 MG TAB PO SCH ×2 (08:41→21:55)
[2021-02-04] MEDS ORDERED: ALBUMIN (HUMAN) 25% 200 ML IV ONE (11:44)
[2021-02-04 13:56] LABS: GLUCOSE,BODY FLUID 157 mg/dL (1-40)
[2021-02-04 14:55] LABS: SPECIMENTYPE,BODY FLUID ASCITES
[2021-02-04 14:56] LABS: APPEARANCE BODY FLUID SLIGHTLY CLOUDY (CLEAR); BODY FLUID WBC 189 /cu. mm.; COLOR,BODY FLUID YELLOW (LT YELLOW); TOTAL VOLUME,BODY FLUID 5000 mL
[2021-02-04 14:57] LABS: BODY FLUID RBC 608 /cu. mm.
[2021-02-04 15:17] LABS: BF LYMPHOCYTE 81 %; BF MESOTHELIAL 12 %; BF OTHER CELLS 2
[2021-02-04] MEDS: CEFTRIAXONE 1G VIAL IV SCH (18:29)
[2021-02-05 01:15] VITALS: BP 98/56
[2021-02-05 03:40] VITALS: BP 106/60
[2021-02-05] MEDS: FUROSEMIDE 20MG VIAL IV SCH (03:41)
[2021-02-05 06:30] VITALS: BP 100/50
[2021-02-05 07:19] VITALS: BP 96/48
[2021-02-05] MEDS ORDERED: SPIR50TA5 PO (08:31)
[2021-02-05] MEDS ORDERED: MIDO10TA PO (08:31)
[2021-02-05] MEDS: OCTREOTIDE ACETATE 100 MCG/ML AMP SQ SCH (09:00)
[2021-02-05] MEDS: SPIRONOLACTONE 25 MG TAB PO SCH (10:13)
[2021-02-05] MEDS: LACTULOSE 20 GM/30 ML UDCUP PO SCH (10:13)
[2021-02-05] MEDS: MIDODRINE HCL 5 MG TABLET PO SCH ×2 (10:13→15:27)
== END 2021-02-05 16:00 | disposition home or self-care (01) | DRG 432 ==
LOC: EDH 12:04 → EDHIP 12:05 → 3BH 02-05 08:38
PROVIDERS: ADMIT Internal Medicine; ATTEND Internal Medicine
PROC: 0W9G3ZZ Drainage of Peritoneal Cavity, Percutaneous Approach (ICD-10-PCS; principal; 2021-02-04)
DX: K70.31 Alcoholic cirrhosis of liver with ascites (principal); E43 Unspecified severe protein-calorie malnutrition; E87.1 Hypo-osmolality and hyponatremia; E87.70 Fluid overload, unspecified; E83.51 Hypocalcemia; F10.10 Alcohol abuse, uncomplicated; Z20.822 Contact with and (suspected) exposure to COVID-19; Z68.34 Body mass index [BMI] 34.0-34.9, adult; Z79.899 Other long term (current) drug therapy; Z86.19 Personal history of other infectious and parasitic diseases; Z82.49 Family history of ischemic heart disease and other diseases of the circulatory system
CPT/HCPCS: 36415; 49083; 71045; 80053; 81001; 82140; 82550; 82945; 82948; 83615; 83735; 83880; 84145; 84157; 84484; 85025; 85610; 85730; 86140; 87071; 87205; 87635; 89051; 93005; 96365; C1729; G0378; J0696; J1940; J2354; J7120; P9046

== ENCOUNTER 2021-02-17 08:35 | Emergency (ER) | payer OTHER ==
[~2021-02-17] VITALS: Ht 172.7 cm; Wt 104.3 kg
[~2021-02-17 08:35] MED LIST changes: +MIDO10TA PO; -MIDO5TAB4 PO; -SPIR25TA6 PO; +SPIR50TA5 PO
[2021-02-17] MEDS ORDERED: ALBUMIN (HUMAN) 25% 100 ML IV.SOLN. IV ONE (08:36)
[2021-02-17 08:37] VITALS: BP 106/63
[2021-02-17 09:18] LABS: HEMATOCRIT 23.2 % (42-54); MEAN CORPUSCULAR HEMOGLOBIN 31.2 pg (27.0-33.0); MEAN CORPUSCULAR HGB CONC 33.6 g/dL (32.0-36.0); MEAN CORPUSCULAR VOLUME 92.8 fL (79-99); PLATELET COUNT (AUTO) 127 K/uL (130-400); WHITE BLOOD COUNT (AUTO) 4.9 K/uL (4.8-10.8)
[2021-02-17 09:27] LABS: POTASSIUM 4.4 mmol/L (3.5-5.1)
[2021-02-17 09:37] LABS: ALBUMIN 2.2 g/dL (3.5-5.0); BILIRUBIN,TOTAL 4.7 mg/dL (0.2-1.0); TOTAL PROTEIN, SERUM 6.5 g/dL (6.0-8.3)
[2021-02-17 10:05] LABS: INR 1.55 (0.85-1.15); PROTHROMBIN TIME 16.2 SEC (9.6-11.6)
[2021-02-17 10:07] LABS: PARTIAL THROMBOPLASTIN TIME 39.8 SEC (26.3-35.5)
[2021-02-17 10:09] LABS: BASOPHILS % (MANUAL) 2 % (0-2); EOSINOPHILS % (MANUAL) 9 % (1-6); LYMPHOCYTES % (MANUAL) 24 % (22-44); MAN.DIFF COMMENT-IMPRESSION MANUAL DIFFERENTIAL; MONOCYTES % (MANUAL) 7 % (2-9); PLATELET MORPHOLOGY COMMENT SLIGHTLY DECREASED; SEGMENTED NEUTROPHILS % 58 % (40-70)
[2021-02-17 12:05] VITALS: BP 106/60
[2021-02-17] MEDS ORDERED: PROP20TA7 PO (13:08)
[2021-02-17 13:18] VITALS: BP 97/56
[2021-02-17 15:47] VITALS: BP 97/64
[2021-02-17 16:36] LABS: SPECIMENTYPE,BODY FLUID ASCITES
[2021-02-17 16:37] LABS: APPEARANCE BODY FLUID SLIGHTLY CLOUDY (CLEAR); BODY FLUID WBC 150 /cu. mm.; COLOR,BODY FLUID YELLOW (LT YELLOW); TOTAL VOLUME,BODY FLUID 6300 mL
[2021-02-17 16:38] LABS: BODY FLUID RBC 300 /cu. mm.
[2021-02-17 16:50] LABS: BF LYMPHOCYTE 24 %; BF OTHER CELLS 8
[2021-02-17] MEDS ORDERED: ALBUMIN (HUMAN) 25% 200 ML IV ONE (17:00)
[2021-02-17 18:16] VITALS: BP 109/67
== END 2021-02-17 18:15 | disposition home or self-care (01) ==
LOC: EDH 08:35
DX: K70.31 Alcoholic cirrhosis of liver with ascites (principal); J90 Pleural effusion, not elsewhere classified; Z79.899 Other long term (current) drug therapy
CPT/HCPCS: 36415; 49083; 71045; 80053; 82550; 83874; 84484; 85025; 85610; 85730; 87071; 87205; 89051; 93005; 96365; 99285; C1729; P9046

== ENCOUNTER 2021-02-24 08:27 | Emergency (ER) | payer OTHER ==
[~2021-02-24] VITALS: Ht 172.7 cm; Wt 99.8 kg
[~2021-02-24 08:27] MED LIST changes: +PROP20TA7 PO
[2021-02-24 09:04] LABS: BASOPHILS % (AUTO) 1.5 % (0.0-5.0); EOSINOPHILS % (AUTO) 8.9 % (0.0-8.0); HEMATOCRIT 25.3 % (42-54); LYMPHOCYTES % (AUTO) 31.3 % (21.0-51.0); MEAN CORPUSCULAR HEMOGLOBIN 30.5 pg (27.0-33.0); MEAN CORPUSCULAR HGB CONC 32.8 g/dL (32.0-36.0); MONOCYTES % (AUTO) 10.6 % (3.0-13.0); NEUTROPHILS % (AUTO) 47.3 % (40.0-77.0); PLATELET COUNT (AUTO) 115 K/uL (130-400); RED BLOOD CELL COUNT(AUTO) 2.72 MIL/uL (4.50-6.20); RED CELL DISTRIBUTION WIDTH 15.4 % (11.0-15.5); WHITE BLOOD COUNT (AUTO) 5.3 K/uL (4.8-10.8)
[2021-02-24 09:18] LABS: POTASSIUM 4.6 mmol/L (3.5-5.1)
[2021-02-24 09:27] LABS: INR 1.57 (0.85-1.15); PROTHROMBIN TIME 16.4 SEC (9.6-11.6)
[2021-02-24 09:28] LABS: ALBUMIN 2.4 g/dL (3.5-5.0); BILIRUBIN,TOTAL 5.1 mg/dL (0.2-1.0); PARTIAL THROMBOPLASTIN TIME 38.8 SEC (26.3-35.5); TOTAL PROTEIN, SERUM 6.8 g/dL (6.0-8.3)
[2021-02-24 10:00] VITALS: BP 97/59
[2021-02-24 10:17] LABS: BILIRUBIN,URINE Small (NEGATIVE); COLOR,URINE Dark Yellow (YELLOW); GLUCOSE, URINE (UA) Negative (NEGATIVE); KETONES,URINE Trace mg/dL (NEGATIVE); LEUKOCYTE ESTERASE ,URINE Trace (NEGATIVE); NITRATE,URINE Negative (NEGATIVE); OCCULT BLOOD,URINE Negative (NEGATIVE); PH,URINE 5.5 (5.0-8.0); PROTEIN,URINE Negative (NEGATIVE)
[2021-02-24 10:18] LABS: APPEARANCE,URINE CLEAR (CLEAR)
[2021-02-24 10:40] LABS: BACTERIA,URINE None Seen /HPF (None Seen); RBC,URINE 0-1 /HPF (0-1); SQUAMOUS EPITHELIAL CELL,UR 0-2 /HPF (0-2); WBC,URINE 0-1 /HPF (0-1)
[2021-02-24] MEDS ORDERED: ALBUMIN (HUMAN) 25% 200 ML IV ONE (10:45)
[2021-02-24 12:40] VITALS: BP 95/62
[2021-02-24 13:47] LABS: APPEARANCE BODY FLUID CLEAR (CLEAR); BODY FLUID RBC 245 /cu. mm.; BODY FLUID WBC 150 /cu. mm.; COLOR,BODY FLUID YELLOW (LT YELLOW); SPECIMENTYPE,BODY FLUID ASCITES; TOTAL VOLUME,BODY FLUID 6200 mL
[2021-02-24 14:11] LABS: BF LYMPHOCYTE 44 %; BF MESOTHELIAL 47 %
== END 2021-02-24 13:51 | disposition home or self-care (01) ==
LOC: EDH 08:27
DX: K70.31 Alcoholic cirrhosis of liver with ascites (principal); J90 Pleural effusion, not elsewhere classified; Z79.899 Other long term (current) drug therapy
CPT/HCPCS: 36415; 49083; 71045; 80053; 81001; 82150; 83690; 85025; 85610; 85730; 87071; 87205; 89051; 96365; 99285; C1729; P9046

== ENCOUNTER 2021-02-26 09:03 | Emergency (ER) | payer OTHER ==
[~2021-02-26] VITALS: Ht 172.7 cm; Wt 97.1 kg
[2021-02-26 09:46] VITALS: BP 96/37
[2021-02-26 11:35] LABS: BASOPHILS % (AUTO) 1.5 % (0.0-5.0); EOSINOPHILS % (AUTO) 7.4 % (0.0-8.0); HEMATOCRIT 24.6 % (42-54); LYMPHOCYTES % (AUTO) 33.2 % (21.0-51.0); MEAN CORPUSCULAR HGB CONC 32.5 g/dL (32.0-36.0); MEAN CORPUSCULAR VOLUME 95.3 fL (79-99); MONOCYTES % (AUTO) 11.8 % (3.0-13.0); NEUTROPHILS % (AUTO) 45.7 % (40.0-77.0); PLATELET COUNT (AUTO) 105 K/uL (130-400); RED BLOOD CELL COUNT(AUTO) 2.58 MIL/uL (4.50-6.20); RED CELL DISTRIBUTION WIDTH 15.5 % (11.0-15.5); WHITE BLOOD COUNT (AUTO) 4.6 K/uL (4.8-10.8)
[2021-02-26 11:39] LABS: POTASSIUM 4.3 mmol/L (3.5-5.1)
[2021-02-26 11:44] LABS: ALBUMIN 2.5 g/dL (3.5-5.0); BILIRUBIN,TOTAL 4.2 mg/dL (0.2-1.0); TOTAL PROTEIN, SERUM 6.4 g/dL (6.0-8.3)
[2021-02-26 12:56] VITALS: BP 91/54
[2021-02-26 14:48] VITALS: BP 97/59
== END 2021-02-26 15:38 | disposition home or self-care (01) ==
LOC: EDH 09:03
DX: R18.8 Other ascites (principal); J98.8 Other specified respiratory disorders; I10 Essential (primary) hypertension; Z79.899 Other long term (current) drug therapy
CPT/HCPCS: 32555; 36415; 71045 ×2; 80053; 85025; 85730; 99285; C1729

== ENCOUNTER 2021-03-01 20:08 | Emergency (ER) | payer OTHER ==
[~2021-03-01] VITALS: Ht 172.7 cm; Wt 96.6 kg
[2021-03-01 20:17] VITALS: BP 125/59
[2021-03-01] MEDS ORDERED: HYDROCODONE/ACETAMINOPHEN 5/325 MG TAB PO ONE (21:00)
[2021-03-01 21:03] LABS: APPEARANCE,URINE SL CLOUDY (CLEAR); BILIRUBIN,URINE MODERATE (NEGATIVE); COLOR,URINE ORANGE (YELLOW); GLUCOSE, URINE (UA) NEGATIVE (NEGATIVE); KETONES,URINE 5 mg/dL (NEGATIVE); LEUKOCYTE ESTERASE ,URINE NEGATIVE (NEGATIVE); NITRATE,URINE POSITIVE (NEGATIVE); OCCULT BLOOD,URINE NEGATIVE (NEGATIVE); PH,URINE 5.5 (5.0-8.0); PROTEIN,URINE NEGATIVE (NEGATIVE)
[2021-03-01 21:08] LABS: BASOPHILS % (AUTO) 0.6 % (0.0-5.0); EOSINOPHILS % (AUTO) 1.3 % (0.0-8.0); HEMATOCRIT 24.2 % (42-54); LYMPHOCYTES % (AUTO) 14.9 % (21.0-51.0); MEAN CORPUSCULAR HEMOGLOBIN 31.1 pg (27.0-33.0); MEAN CORPUSCULAR HGB CONC 33.1 g/dL (32.0-36.0); MEAN CORPUSCULAR VOLUME 94.2 fL (79-99); MONOCYTES % (AUTO) 9.8 % (3.0-13.0); NEUTROPHILS % (AUTO) 72.7 % (40.0-77.0); PLATELET COUNT (AUTO) 109 K/uL (130-400); RED BLOOD CELL COUNT(AUTO) 2.57 MIL/uL (4.50-6.20); RED CELL DISTRIBUTION WIDTH 15.2 % (11.0-15.5); WHITE BLOOD COUNT (AUTO) 6.9 K/uL (4.8-10.8)
[2021-03-01 21:17] LABS: AMORPHOUS SEDIMENT,UR Rare /LPF (None Seen); BACTERIA,URINE Few /HPF (None Seen); MUCUS,URINE Moderate LPF (None Seen); RBC,URINE 0-1 /HPF (0-1); SQUAMOUS EPITHELIAL CELL,UR Rare /HPF (0-2); WBC,URINE 0-1 /HPF (0-1)
[2021-03-01 21:19] LABS: POTASSIUM 4.6 mmol/L (3.5-5.1)
[2021-03-01 21:24] LABS: ALBUMIN 2.4 g/dL (3.5-5.0); B-TYPE NATRIURETIC PEPTIDE 468 pg/mL (0-100); TOTAL PROTEIN, SERUM 6.7 g/dL (6.0-8.3)
[2021-03-01] MEDS ORDERED: IBUPROFEN 600 MG TABLET PO ONE (21:30)
[2021-03-01 23:00] VITALS: BP 112/58
[2021-03-01] MEDS ORDERED: ACET1TAB25 PO (23:13)
[2021-03-02 00:35] VITALS: BP 118/56
== END 2021-03-02 00:37 | disposition home or self-care (01) ==
LOC: EDH 20:08
DX: K70.31 Alcoholic cirrhosis of liver with ascites (principal); R60.0 Localized edema; Z20.822 Contact with and (suspected) exposure to COVID-19; I25.10 Atherosclerotic heart disease of native coronary artery without angina pectoris; I10 Essential (primary) hypertension; Z79.899 Other long term (current) drug therapy; Z79.1 Long term (current) use of non-steroidal anti-inflammatories (NSAID)
CPT/HCPCS: 36415; 71045; 80053; 81001; 82140; 83605; 83690; 83880; 84484; 85025; 86850; 86900; 86901; 87077; 87088; 87186; 87635; 99284; C9803

== ENCOUNTER → 2021-03-12 | Outpatient (CLI) | payer OTHER ==
[~2021-03-12] MED LIST changes: +ACET1TAB25 PO
[2021-03-12 14:04] LABS: APPEARANCE BODY FLUID CLOUDY (CLEAR); BODY FLUID WBC 50 /cu. mm.; COLOR,BODY FLUID RED (LT YELLOW); SPECIMENTYPE,BODY FLUID THORACENTESIS
[2021-03-12 14:05] LABS: BODY FLUID RBC 34000 /cu. mm.; TOTAL VOLUME,BODY FLUID 2000 mL
[2021-03-12 14:32] LABS: BF EOSINOPHIL 1 %; BF LYMPHOCYTE 17 %; BF MESOTHELIAL 72 %; BF MONOCYTE 2 %
== END ==
LOC: RAH 09:36
PROVIDERS: ATTEND Family Medicine
DX: J90 Pleural effusion, not elsewhere classified (principal)
CPT/HCPCS: 32555; 71045; 87071; 87205; 89051; C1729

== ENCOUNTER 2021-03-20 07:50 | Emergency (ER) | payer OTHER ==
[~2021-03-20] VITALS: Ht 172.7 cm; Wt 99.8 kg
[2021-03-20] MEDS ORDERED: ALBUMIN (HUMAN) 25% 200 ML IV ONE (08:50)
[2021-03-20 11:45] VITALS: BP 98/45
== END 2021-03-20 12:39 | disposition home or self-care (01) ==
LOC: EDH 07:50
DX: K70.31 Alcoholic cirrhosis of liver with ascites (principal); Z79.899 Other long term (current) drug therapy
CPT/HCPCS: 49083; 82042; 84157; 87071; 87077; 87186; 87205; 89051; 96365; 99285; C1729; P9046 ×2

== ENCOUNTER 2021-04-08 09:28 | Inpatient (IN) | payer OTHER ==
[~2021-04-08] VITALS: Ht 172.7 cm; Wt 84.6 kg
[2021-04-08 10:18] LABS: BASOPHILS % (AUTO) 0.3 % (0.0-5.0); EOSINOPHILS % (AUTO) 0.6 % (0.0-8.0); HEMATOCRIT 22.7 % (42-54); LYMPHOCYTES % (AUTO) 23.2 % (21.0-51.0); MEAN CORPUSCULAR HEMOGLOBIN 30.7 pg (27.0-33.0); MEAN CORPUSCULAR HGB CONC 32.6 g/dL (32.0-36.0); MEAN CORPUSCULAR VOLUME 94.2 fL (79-99); MONOCYTES % (AUTO) 7.6 % (3.0-13.0); NEUTROPHILS % (AUTO) 67.5 % (40.0-77.0); PLATELET COUNT (AUTO) 93 K/uL (130-400); RED BLOOD CELL COUNT(AUTO) 2.41 MIL/uL (4.50-6.20); RED CELL DISTRIBUTION WIDTH 14.5 % (11.0-15.5); WHITE BLOOD COUNT (AUTO) 6.4 K/uL (4.8-10.8)
[2021-04-08 10:28] LABS: CREATININE 1.1 mg/dL (0.5-1.5); POTASSIUM 4.1 mmol/L (3.5-5.1)
[2021-04-08 10:29] LABS: INR 1.9 (0.85-1.15); PROTHROMBIN TIME 19.5 SEC (9.6-11.6)
[2021-04-08 10:31] LABS: PARTIAL THROMBOPLASTIN TIME 48.9 SEC (26.3-35.5)
[2021-04-08 10:33] LABS: ALBUMIN 2.3 g/dL (3.5-5.0); TOTAL PROTEIN, SERUM 6.6 g/dL (6.0-8.3)
[2021-04-08] MEDS ORDERED: LACTULOSE 20 GM/30 ML UDCUP PO PRN (11:30)
[2021-04-08] MEDS ORDERED: ACETAMINOPHEN 325 MG TAB PO PRN (11:30)
[2021-04-08] MEDS ORDERED: ONDANSETRON 4MG INJ IVP PRN (11:30)
[2021-04-08] MEDS: MORPHINE 2 MG SYG IVP ONE ×3 (12:23→12:40)
[2021-04-08] MEDS: FUROSEMIDE 40MG VIAL IV SCH ×3 (12:23→12:40)
[2021-04-08] MEDS ORDERED: ALBUMIN (HUMAN) 25% 100 ML IV ONE (17:10)
[2021-04-08 21:13] LABS: APPEARANCE BODY FLUID CLOUDY (CLEAR); COLOR,BODY FLUID ORANGE (LT YELLOW); SPECIMENTYPE,BODY FLUID ASCITES; TOTAL VOLUME,BODY FLUID 4500 mL
[2021-04-08 21:14] LABS: BODY FLUID RBC 4860 /cu. mm.; BODY FLUID WBC 875 /cu. mm.
[2021-04-08 21:39] LABS: BF LYMPHOCYTE 7 %
[2021-04-08 23:05] VITALS: BP 106/62
[2021-04-09] MEDS: FUROSEMIDE 40MG VIAL IV SCH ×2 (00:53→14:46)
[2021-04-09 03:34] VITALS: BP 103/68
[2021-04-09 07:00] VITALS: BP 108/65
[2021-04-09] MEDS ORDERED: CEFTRIAXONE 1G VIAL IVP SCH (08:00)
[2021-04-09] MEDS: FOLIC ACID 1 MG TABLET PO SCH (08:26)
[2021-04-09] MEDS: CYANOCOBALAMIN (VITAMIN B-12) 1,000 MCG TABLET PO SCH (08:27)
[2021-04-09 08:30] LABS: BASOPHILS % (AUTO) 0.5 % (0.0-5.0); EOSINOPHILS % (AUTO) 7.4 % (0.0-8.0); HEMATOCRIT 21.2 % (42-54); LYMPHOCYTES % (AUTO) 23.9 % (21.0-51.0); MEAN CORPUSCULAR HEMOGLOBIN 30.8 pg (27.0-33.0); MEAN CORPUSCULAR HGB CONC 32.1 g/dL (32.0-36.0); MEAN CORPUSCULAR VOLUME 95.9 fL (79-99); MONOCYTES % (AUTO) 11.5 % (3.0-13.0); PLATELET COUNT (AUTO) 83 K/uL (130-400); RED BLOOD CELL COUNT(AUTO) 2.21 MIL/uL (4.50-6.20); RED CELL DISTRIBUTION WIDTH 14.1 % (11.0-15.5)
[2021-04-09 08:44] LABS: ABG BASE EXCESS 5.7 mmol/L (-2.0-3.0); ABG HCO3 29.9 mmol/L (21.0-28.0); ABG OXYGEN SATURATION 91.6 % (95.0-99.0); ABG PCO2 42 mmHg (35-48)
[2021-04-09 08:51] LABS: INR 1.86 (0.85-1.15); PROTHROMBIN TIME 19.2 SEC (9.6-11.6)
[2021-04-09 08:53] LABS: PARTIAL THROMBOPLASTIN TIME 56.5 SEC (26.3-35.5)
[2021-04-09] MEDS ORDERED: EPOETIN ALFA-EPBX (ESRD) 10,000 UNIT/ML VIAL SQ SCH (09:00)
[2021-04-09] MEDS ORDERED: SPIRONOLACTONE 25 MG TAB PO SCH (09:00)
[2021-04-09 09:14] LABS: ALBUMIN 2.1 g/dL (3.5-5.0); BILIRUBIN,TOTAL 9.2 mg/dL (0.2-1.0); CREATININE 0.8 mg/dL (0.5-1.5); POTASSIUM 3.9 mmol/L (3.5-5.1); TOTAL PROTEIN, SERUM 5.9 g/dL (6.0-8.3)
[2021-04-09 09:17] LABS: % IRON SATURATION 103.3 % (30-44)
[2021-04-09] MEDS ORDERED: COMPOUND IV MISC 1 EACH IVSOLN MISC PRN (09:30)
[2021-04-09] MEDS ORDERED: PHARMACY COMMUNICATION MISC SCH ×2 (09:30→22:00)
[2021-04-09] MEDS: IRON SUCROSE COMPLEX 300 MG in 0.9%NACL 50ML 50 ML IV SCH (09:41)
[2021-04-09] MEDS ORDERED: ALBUMIN (HUMAN) 25% 50 ML IV SCH (10:25)
[2021-04-09] MEDS ORDERED: COMPOUND PO MISCELLANEOUS 1 EACH MISC MISC PRN (10:30)
[2021-04-09 11:00] VITALS: BP 93/55
[2021-04-09 11:02] LABS: GLUCOSE,BODY FLUID 125 mg/dL (1-40)
[2021-04-09 12:11] LABS: APPEARANCE BODY FLUID TURBID (CLEAR); COLOR,BODY FLUID ORANGE (LT YELLOW); SPECIMENTYPE,BODY FLUID THORACENTESIS; TOTAL VOLUME,BODY FLUID 1830 mL
[2021-04-09 12:12] LABS: BODY FLUID RBC 11500 /cu. mm.; BODY FLUID WBC 410 /cu. mm.
[2021-04-09 13:00] LABS: BF LYMPHOCYTE 8 %; BF MESOTHELIAL 26 %; BF MONOCYTE 20 %
[2021-04-09] MEDS: PHYTONADIONE 10 MG/1 ML AMP PO SCH (14:44)
[2021-04-09 15:00] VITALS: BP 115/68
[2021-04-09 17:19] LABS: HEMATOCRIT 23.6 % (42-54); MEAN CORPUSCULAR HEMOGLOBIN 30.7 pg (27.0-33.0); MEAN CORPUSCULAR HGB CONC 33.1 g/dL (32.0-36.0); MEAN CORPUSCULAR VOLUME 92.9 fL (79-99); PLATELET COUNT (AUTO) 68 K/uL (130-400); RED BLOOD CELL COUNT(AUTO) 2.54 MIL/uL (4.50-6.20); RED CELL DISTRIBUTION WIDTH 15.2 % (11.0-15.5); WHITE BLOOD COUNT (AUTO) 5.7 K/uL (4.8-10.8)
[2021-04-09] MEDS ORDERED: LACTULOSE 20 GM/30 ML UDCUP PO PRN (17:30)
[2021-04-09 19:50] VITALS: BP 112/59
[2021-04-09] MEDS ORDERED: CEFTRIAXONE 2GM VIAL IVP SCH (21:30)
[2021-04-09] MEDS ORDERED: RENAL DOSE IV SCH (22:00)
[2021-04-09] MEDS: MEROPENEM 1 GM VIAL IVP SCH (22:22)
[2021-04-09] MEDS: ALBUMIN (HUMAN) 25% 100 ML IV SCH ×2 (22:25→23:16)
[2021-04-09 23:26] VITALS: BP 101/58
[2021-04-10] MEDS: ALBUMIN (HUMAN) 25% 100 ML IV SCH ×3 (00:10→02:28)
[2021-04-10 03:30] VITALS: BP 111/63
[2021-04-10 05:12] LABS: BASOPHILS % (AUTO) 0.8 % (0.0-5.0); EOSINOPHILS % (AUTO) 10.6 % (0.0-8.0); MEAN CORPUSCULAR HEMOGLOBIN 30.5 pg (27.0-33.0); MEAN CORPUSCULAR HGB CONC 33.8 g/dL (32.0-36.0); MEAN CORPUSCULAR VOLUME 90.3 fL (79-99); NEUTROPHILS % (AUTO) 46.5 % (40.0-77.0); PLATELET COUNT (AUTO) 74 K/uL (130-400); RED BLOOD CELL COUNT(AUTO) 2.26 MIL/uL (4.50-6.20); RED CELL DISTRIBUTION WIDTH 15.6 % (11.0-15.5); WHITE BLOOD COUNT (AUTO) 4.7 K/uL (4.8-10.8)
[2021-04-10 05:20] LABS: HEMATOCRIT 20.4 % (42-54)
[2021-04-10 05:23] LABS: CREATININE 0.9 mg/dL (0.5-1.5); POTASSIUM 3.2 mmol/L (3.5-5.1)
[2021-04-10] MEDS ORDERED: 0.9% NACL 250ML 250 ML ONE (05:44)
[2021-04-10] MEDS: MEROPENEM 1 GM VIAL IVP SCH ×3 (05:55→21:28)
[2021-04-10 07:05] VITALS: BP 111/61
[2021-04-10] MEDS ORDERED: LACTULOSE 20 GM/30 ML UDCUP ONE (08:26)
[2021-04-10] MEDS: SPIRONOLACTONE 25 MG TAB PO SCH (08:27)
[2021-04-10] MEDS: FUROSEMIDE 40 MG TABLET PO SCH (08:28)
[2021-04-10] MEDS: CYANOCOBALAMIN (VITAMIN B-12) 1,000 MCG TABLET PO SCH (08:28)
[2021-04-10] MEDS: IRON SUCROSE COMPLEX 300 MG in 0.9%NACL 50ML 50 ML IV SCH (08:28)
[2021-04-10] MEDS: FOLIC ACID 1 MG TABLET PO SCH (08:28)
[2021-04-10] MEDS: LACTULOSE 20 GM/30 ML UDCUP PO SCH ×3 (08:30→19:14)
[2021-04-10] MEDS: PHYTONADIONE 10 MG/1 ML AMP PO SCH (09:00)
[2021-04-10] MEDS ORDERED: PHARMACY COMMUNICATION MISC SCH (10:30)
[2021-04-10] MEDS ORDERED: KCL 20 MEQ ERTAB PO ONE (10:30)
[2021-04-10 11:05] VITALS: BP 120/67
[2021-04-10] MEDS ORDERED: ALBUMIN (HUMAN) 25% 50 ML IV SCH (11:25)
[2021-04-10 11:54] LABS: INR 1.8 (0.85-1.15); PROTHROMBIN TIME 18.6 SEC (9.6-11.6)
[2021-04-10] MEDS ORDERED: PEG 3350/NA SULF,BICARB,CL/KCL 4000 ML SOLN PO SCH (16:00)
[2021-04-10 16:08] VITALS: BP 120/72
[2021-04-10 20:14] VITALS: BP 122/66
[2021-04-10 21:01] LABS: HEMATOCRIT 24.7 % (42-54)
[2021-04-10 23:39] VITALS: BP 118/57
[2021-04-11] VITALS (16 sets, daily range): BP systolic 87–147; BP diastolic 39–79
[2021-04-11 04:29] LABS: EOSINOPHILS % (AUTO) 12.5 % (0.0-8.0); HEMATOCRIT 23.5 % (42-54); LYMPHOCYTES % (AUTO) 32.2 % (21.0-51.0); MEAN CORPUSCULAR HEMOGLOBIN 30.2 pg (27.0-33.0); MEAN CORPUSCULAR HGB CONC 33.6 g/dL (32.0-36.0); MEAN CORPUSCULAR VOLUME 89.7 fL (79-99); MONOCYTES % (AUTO) 11.5 % (3.0-13.0); NEUTROPHILS % (AUTO) 41.6 % (40.0-77.0); PLATELET COUNT (AUTO) 72 K/uL (130-400); RED BLOOD CELL COUNT(AUTO) 2.62 MIL/uL (4.50-6.20); RED CELL DISTRIBUTION WIDTH 16.9 % (11.0-15.5); WHITE BLOOD COUNT (AUTO) 4.1 K/uL (4.8-10.8)
[2021-04-11 04:38] LABS: INR 1.93 (0.85-1.15); PROTHROMBIN TIME 19.8 SEC (9.6-11.6)
[2021-04-11 04:40] LABS: PARTIAL THROMBOPLASTIN TIME 74.5 SEC (26.3-35.5)
[2021-04-11 04:43] LABS: BILIRUBIN,TOTAL 6.7 mg/dL (0.2-1.0); CREATININE 0.7 mg/dL (0.5-1.5); MAGNESIUM 1.4 mg/dL (1.80-2.40); PHOSPHORUS 3.7 mg/dL (2.5-4.9); POTASSIUM 3.6 mmol/L (3.5-5.1); TOTAL PROTEIN, SERUM 5.8 g/dL (6.0-8.3)
[2021-04-11 05:00] LABS: % IRON SATURATION 144.9 % (30-44)
[2021-04-11] MEDS: MEROPENEM 1 GM VIAL IVP SCH ×3 (05:08→23:07)
[2021-04-11] MEDS: PHYTONADIONE 10 MG/1 ML AMP PO SCH (09:00)
[2021-04-11] MEDS ORDERED: LIDOCAINE HCL 1% 20 ML VIAL ONE (11:49)
[2021-04-11] MEDS ORDERED: PROPOFOL 10 MG/ML 20ML VIAL IV ONE (11:49)
[2021-04-11 13:52] LABS: HEMATOCRIT 26.4 % (42-54)
[2021-04-11] MEDS: SPIRONOLACTONE 25 MG TAB PO SCH (13:52)
[2021-04-11] MEDS: IRON SUCROSE COMPLEX 300 MG in 0.9%NACL 50ML 50 ML IV SCH (13:52)
[2021-04-11] MEDS: RIFAXIMIN 550 MG TABLET PO SCH ×2 (13:53→21:49)
[2021-04-11] MEDS: CYANOCOBALAMIN (VITAMIN B-12) 1,000 MCG TABLET PO SCH (13:53)
[2021-04-11] MEDS: FOLIC ACID 1 MG TABLET PO SCH (13:53)
[2021-04-11] MEDS: FUROSEMIDE 40 MG TABLET PO SCH (13:53)
[2021-04-11 20:47] LABS: HEMATOCRIT 25.9 % (42-54)
[2021-04-11] MEDS: PHYTONADIONE 1MG/ML ORAL SOLN PO SCH ×2 (21:49)
[2021-04-12 00:08] VITALS: BP 131/74
[2021-04-12 04:08] VITALS: BP 109/58
[2021-04-12 05:19] LABS: BASOPHILS % (AUTO) 0.9 % (0.0-5.0); EOSINOPHILS % (AUTO) 15.9 % (0.0-8.0); HEMATOCRIT 24.4 % (42-54); LYMPHOCYTES % (AUTO) 27.6 % (21.0-51.0); MEAN CORPUSCULAR HEMOGLOBIN 29.4 pg (27.0-33.0); MEAN CORPUSCULAR HGB CONC 32.8 g/dL (32.0-36.0); MEAN CORPUSCULAR VOLUME 89.7 fL (79-99); MONOCYTES % (AUTO) 13.1 % (3.0-13.0); PLATELET COUNT (AUTO) 84 K/uL (130-400); RED BLOOD CELL COUNT(AUTO) 2.72 MIL/uL (4.50-6.20); RED CELL DISTRIBUTION WIDTH 16.8 % (11.0-15.5); WHITE BLOOD COUNT (AUTO) 5.5 K/uL (4.8-10.8)
[2021-04-12] MEDS: MEROPENEM 1 GM VIAL IVP SCH ×3 (05:31→22:36)
[2021-04-12 06:09] LABS: ALBUMIN 3.1 g/dL (3.5-5.0); BILIRUBIN,TOTAL 5.5 mg/dL (0.2-1.0); CREATININE 0.8 mg/dL (0.5-1.5); POTASSIUM 3.3 mmol/L (3.5-5.1); TOTAL PROTEIN, SERUM 6.2 g/dL (6.0-8.3)
[2021-04-12] MEDS: PHYTONADIONE 10 MG/1 ML AMP PO SCH (09:00)
[2021-04-12 09:40] VITALS: BP 111/57
[2021-04-12] MEDS: FOLIC ACID 1 MG TABLET PO SCH (10:02)
[2021-04-12] MEDS: LACTULOSE 20 GM/30 ML UDCUP PO SCH (10:02)
[2021-04-12] MEDS: CYANOCOBALAMIN (VITAMIN B-12) 1,000 MCG TABLET PO SCH (10:02)
[2021-04-12] MEDS: RIFAXIMIN 550 MG TABLET PO SCH ×2 (10:02→19:21)
[2021-04-12] MEDS: FUROSEMIDE 40 MG TABLET PO SCH (10:02)
[2021-04-12] MEDS: SPIRONOLACTONE 25 MG TAB PO SCH (10:02)
[2021-04-12] MEDS: PHYTONADIONE 1MG/ML ORAL SOLN PO SCH ×2 (11:27)
[2021-04-12 12:00] VITALS: BP 136/70
[2021-04-12 18:51] VITALS: BP 138/74
[2021-04-12 20:04] VITALS: BP 128/67
[2021-04-13 00:04] VITALS: BP 108/61
[2021-04-13 04:04] VITALS: BP 105/64
[2021-04-13 05:20] LABS: BASOPHILS % (AUTO) 0.9 % (0.0-5.0); EOSINOPHILS % (AUTO) 15.8 % (0.0-8.0); HEMATOCRIT 25.9 % (42-54); LYMPHOCYTES % (AUTO) 29.5 % (21.0-51.0); MEAN CORPUSCULAR HEMOGLOBIN 30.1 pg (27.0-33.0); MEAN CORPUSCULAR HGB CONC 32.8 g/dL (32.0-36.0); MEAN CORPUSCULAR VOLUME 91.8 fL (79-99); MONOCYTES % (AUTO) 11.2 % (3.0-13.0); NEUTROPHILS % (AUTO) 41.2 % (40.0-77.0); PLATELET COUNT (AUTO) 87 K/uL (130-400); RED BLOOD CELL COUNT(AUTO) 2.82 MIL/uL (4.50-6.20); WHITE BLOOD COUNT (AUTO) 5.5 K/uL (4.8-10.8)
[2021-04-13] MEDS: MEROPENEM 1 GM VIAL IVP SCH ×3 (05:37→21:29)
[2021-04-13 05:40] LABS: ALBUMIN 3.1 g/dL (3.5-5.0); CREATININE 0.7 mg/dL (0.5-1.5); POTASSIUM 3.4 mmol/L (3.5-5.1); TOTAL PROTEIN, SERUM 6.3 g/dL (6.0-8.3)
[2021-04-13 07:05] VITALS: BP 119/59
[2021-04-13] MEDS ORDERED: ALBUMIN (HUMAN) 25% 50 ML IV SCH ×2 (08:30→10:30)
[2021-04-13] MEDS: FOLIC ACID 1 MG TABLET PO SCH (10:33)
[2021-04-13] MEDS: SPIRONOLACTONE 25 MG TAB PO SCH (10:33)
[2021-04-13] MEDS: FUROSEMIDE 40 MG TABLET PO SCH (10:33)
[2021-04-13] MEDS: RIFAXIMIN 550 MG TABLET PO SCH ×2 (10:33→20:39)
[2021-04-13] MEDS: CYANOCOBALAMIN (VITAMIN B-12) 1,000 MCG TABLET PO SCH (10:33)
[2021-04-13] MEDS: LACTULOSE 20 GM/30 ML UDCUP PO SCH (10:34)
[2021-04-13 11:05] VITALS: BP 105/54
[2021-04-13 12:52] LABS: GLUCOSE,BODY FLUID 126 mg/dL (1-40)
[2021-04-13 13:04] LABS: APPEARANCE BODY FLUID CLOUDY (CLEAR); BODY FLUID WBC 88 /cu. mm.; COLOR,BODY FLUID ORANGE (LT YELLOW); SPECIMENTYPE,BODY FLUID THORACENTESIS; TOTAL VOLUME,BODY FLUID 3700 mL
[2021-04-13 13:05] LABS: BODY FLUID RBC 10825 /cu. mm.
[2021-04-13 13:21] LABS: BF BASOPHIL 2 %; BF EOSINOPHIL 5 %; BF LYMPHOCYTE 50 %; BF MESOTHELIAL 18 %; BF MONOCYTE 4 %
[2021-04-13] MEDS: PHYTONADIONE 1MG/ML ORAL SOLN PO SCH ×2 (13:39)
[2021-04-13 15:10] VITALS: BP 124/69
[2021-04-13 20:08] VITALS: BP 98/50
[2021-04-14] VITALS (7 sets, daily range): BP systolic 102–112; BP diastolic 55–67
[2021-04-14 04:55] LABS: BASOPHILS % (AUTO) 0.9 % (0.0-5.0); EOSINOPHILS % (AUTO) 16.3 % (0.0-8.0); HEMATOCRIT 26.4 % (42-54); LYMPHOCYTES % (AUTO) 26.8 % (21.0-51.0); MEAN CORPUSCULAR HEMOGLOBIN 29.9 pg (27.0-33.0); MEAN CORPUSCULAR HGB CONC 32.2 g/dL (32.0-36.0); MONOCYTES % (AUTO) 12.9 % (3.0-13.0); NEUTROPHILS % (AUTO) 41.6 % (40.0-77.0); PLATELET COUNT (AUTO) 83 K/uL (130-400); RED BLOOD CELL COUNT(AUTO) 2.84 MIL/uL (4.50-6.20); RED CELL DISTRIBUTION WIDTH 17.2 % (11.0-15.5); WHITE BLOOD COUNT (AUTO) 5.3 K/uL (4.8-10.8)
[2021-04-14 05:04] LABS: CREATININE 0.9 mg/dL (0.5-1.5); POTASSIUM 3.9 mmol/L (3.5-5.1)
[2021-04-14] MEDS: MEROPENEM 1 GM VIAL IVP SCH (05:11)
[2021-04-14] MEDS: FOLIC ACID 1 MG TABLET PO SCH (09:51)
[2021-04-14] MEDS: LACTULOSE 20 GM/30 ML UDCUP PO SCH (09:51)
[2021-04-14] MEDS: SPIRONOLACTONE 25 MG TAB PO SCH (09:51)
[2021-04-14] MEDS: CYANOCOBALAMIN (VITAMIN B-12) 1,000 MCG TABLET PO SCH (09:51)
[2021-04-14] MEDS: RIFAXIMIN 550 MG TABLET PO SCH ×2 (09:51→21:17)
[2021-04-14] MEDS: FUROSEMIDE 40 MG TABLET PO SCH (09:52)
[2021-04-14] MEDS: PHYTONADIONE 1MG/ML ORAL SOLN PO SCH ×2 (11:31)
[2021-04-14] MEDS: CEFTRIAXONE 1G VIAL IVP SCH (14:33)
[2021-04-15 03:59] VITALS: BP 100/47
[2021-04-15 07:52] VITALS: BP 107/61
[2021-04-15] MEDS: FOLIC ACID 1 MG TABLET PO SCH (09:54)
[2021-04-15] MEDS: LACTULOSE 20 GM/30 ML UDCUP PO SCH (09:54)
[2021-04-15] MEDS: FUROSEMIDE 40 MG TABLET PO SCH (09:55)
[2021-04-15] MEDS: RIFAXIMIN 550 MG TABLET PO SCH (09:55)
[2021-04-15] MEDS: CYANOCOBALAMIN (VITAMIN B-12) 1,000 MCG TABLET PO SCH (09:56)
[2021-04-15] MEDS: SPIRONOLACTONE 25 MG TAB PO SCH (09:56)
[2021-04-15 11:10] VITALS: BP 100/60
[2021-04-15] MEDS ORDERED: CEFU500T67 PO (12:38)
[2021-04-15] MEDS: CEFTRIAXONE 1G VIAL IVP SCH (14:00)
== END 2021-04-15 16:15 | disposition home or self-care (01) | DRG 432 ==
LOC: EDH 09:28 → EDHIP 11:12 → 3AH 22:25
PROVIDERS: ADMIT Hospitalist; ATTEND Hospitalist
PROC: 30233K1 Transfusion of Nonautologous Frozen Plasma into Peripheral Vein, Percutaneous Approach (ICD-10-PCS; principal; 2021-04-08)
PROC: 0W9G3ZZ Drainage of Peritoneal Cavity, Percutaneous Approach (ICD-10-PCS; 2021-04-08)
PROC: 30233N1 Transfusion of Nonautologous Red Blood Cells into Peripheral Vein, Percutaneous Approach (ICD-10-PCS; 2021-04-09)
PROC: 0W993ZZ Drainage of Right Pleural Cavity, Percutaneous Approach (ICD-10-PCS; 2021-04-09)
PROC: 0W9G3ZZ Drainage of Peritoneal Cavity, Percutaneous Approach (ICD-10-PCS; 2021-04-10)
PROC: 0DJD8ZZ Inspection of Lower Intestinal Tract, Via Natural or Artificial Opening Endoscopic (ICD-10-PCS; 2021-04-11)
PROC: 0W993ZZ Drainage of Right Pleural Cavity, Percutaneous Approach (ICD-10-PCS; 2021-04-13)
DX: K70.31 Alcoholic cirrhosis of liver with ascites (principal); K65.2 Spontaneous bacterial peritonitis; E43 Unspecified severe protein-calorie malnutrition; K76.6 Portal hypertension; D62 Acute posthemorrhagic anemia; J91.8 Pleural effusion in other conditions classified elsewhere; J94.8 Other specified pleural conditions; E87.70 Fluid overload, unspecified; K64.1 Second degree hemorrhoids; R19.5 Other fecal abnormalities; D50.9 Iron deficiency anemia, unspecified; R06.03 Acute respiratory distress; R73.9 Hyperglycemia, unspecified; I11.0 Hypertensive heart disease with heart failure; I50.9 Heart failure, unspecified; Z68.28 Body mass index [BMI] 28.0-28.9, adult; E88.09 Other disorders of plasma-protein metabolism, not elsewhere classified; D69.6 Thrombocytopenia, unspecified; K29.70 Gastritis, unspecified, without bleeding; K31.89 Other diseases of stomach and duodenum; Z79.899 Other long term (current) drug therapy; Z86.19 Personal history of other infectious and parasitic diseases; Z82.49 Family history of ischemic heart disease and other diseases of the circulatory system
CPT/HCPCS: 32554; 36415; 36430; 36600; 45378; 49083; 71045; 71046; 71250; 80048; 80053; 82140; 82270; 82607; 82728; 82746; 82803; 82945; 82948; 83540; 83550; 83615; 83735; 83880; 83986; 84100; 84145; 84157; 84484; 85014; 85018; 85025; 85027; 85045; 85384; 85610; 85730; 86850; 86900; 86901; 86923; 86927; 87071; 87205; 89051; 93005; 94760; 96365; A4606; C1729; G0378; J0696; J1756; J1940; J2185; J2704; J3430; J7030; J7050; P9016; P9017; P9046; P9047

== ENCOUNTER 2021-05-20 08:40 | Inpatient (IN) | payer OTHER ==
[~2021-05-20] VITALS: Ht 172.7 cm; Wt 72.8 kg
[~2021-05-20 08:40] MED LIST changes: -ACET1TAB25 PO; +CEFU500T67 PO; -SULF1TAB42 PO
[2021-05-20 09:03] LABS: BASOPHILS % (AUTO) 1.1 % (0.0-5.0); EOSINOPHILS % (AUTO) 8.6 % (0.0-8.0); HEMATOCRIT 25.6 % (42-54); LYMPHOCYTES % (AUTO) 25.3 % (21.0-51.0); MEAN CORPUSCULAR HEMOGLOBIN 31.3 pg (27.0-33.0); MEAN CORPUSCULAR HGB CONC 33.6 g/dL (32.0-36.0); MEAN CORPUSCULAR VOLUME 93.1 fL (79-99); MONOCYTES % (AUTO) 6.6 % (3.0-13.0); NEUTROPHILS % (AUTO) 57.1 % (40.0-77.0); PLATELET COUNT (AUTO) 134 K/uL (130-400); RED BLOOD CELL COUNT(AUTO) 2.75 MIL/uL (4.50-6.20); RED CELL DISTRIBUTION WIDTH 14.2 % (11.0-15.5); WHITE BLOOD COUNT (AUTO) 6.4 K/uL (4.8-10.8)
[2021-05-20 09:09] LABS: CREATININE 1.3 mg/dL (0.5-1.5); POTASSIUM 5.6 mmol/L (3.5-5.1)
[2021-05-20 09:14] LABS: ALBUMIN 2.7 g/dL (3.5-5.0); BILIRUBIN,TOTAL 6.1 mg/dL (0.2-1.0); TOTAL PROTEIN, SERUM 7.2 g/dL (6.0-8.3)
[2021-05-20 11:00] LABS: APPEARANCE,URINE Clear (CLEAR); BILIRUBIN,URINE Negative (NEGATIVE); COLOR,URINE Dark Yellow (YELLOW); GLUCOSE, URINE (UA) Negative (NEGATIVE); KETONES,URINE Negative (NEGATIVE); LEUKOCYTE ESTERASE ,URINE Negative (NEGATIVE); NITRATE,URINE Negative (NEGATIVE); OCCULT BLOOD,URINE Negative (NEGATIVE); PH,URINE 5.5 (5.0-8.0); PROTEIN,URINE Negative (NEGATIVE)
[2021-05-20] MEDS ORDERED: LACTULOSE 20 GM/30 ML UDCUP PO PRN (12:30)
[2021-05-20] MEDS ORDERED: ALBUMIN (HUMAN) 25% 200 ML IV ONE (12:37)
[2021-05-20] MEDS ORDERED: SODIUM BICARB 50MEQ 50ML VIAL 50 ML ONE (12:37)
[2021-05-20 12:48] LABS: INR 1.54 (0.85-1.15); PROTHROMBIN TIME 16.1 SEC (9.6-11.6)
[2021-05-20 12:50] LABS: PARTIAL THROMBOPLASTIN TIME 41.8 SEC (26.3-35.5)
[2021-05-20] MEDS ORDERED: SPIR100T5 PO (14:43)
[2021-05-20] MEDS ORDERED: CIPR-278 PO (14:43)
[2021-05-20] MEDS ORDERED: AMIL5TAB8 PO (14:43)
[2021-05-20] MEDS ORDERED: FURO40TA5 PO (14:43)
[2021-05-20 15:30] LABS: THYROID STIMULATING HORMONE 2.19 uIU/mL (0.36-3.74); URIC ACID 5.8 mg/dL (2.6-7.2)
[2021-05-20 16:20] LABS: CHLORIDE,URINE RANDOM 95 mmol/L (110-250); CREATININE,URINE RANDOM 49 mg/dL (30-135); POTASSIUM,URINE RANDOM 19 mmol/L (25-125); SODIUM,URINE RANDOM 74 mmol/l (40-220)
[2021-05-20] MEDS: FUROSEMIDE 40MG VIAL IV SCH (17:48)
[2021-05-20 18:14] LABS: APPEARANCE BODY FLUID BLOODY (CLEAR); COLOR,BODY FLUID ORANGE (LT YELLOW); SPECIMENTYPE,BODY FLUID ASCITES; TOTAL VOLUME,BODY FLUID 3700 mL
[2021-05-20 18:15] LABS: BODY FLUID RBC 24850 /cu. mm.; BODY FLUID WBC 75 /cu. mm.
[2021-05-20] MEDS: ACETAMINOPHEN 325 MG TAB PO PRN (18:27)
[2021-05-20 18:29] LABS: BF LYMPHOCYTE 28 %; BF MONOCYTE 2 %; BF OTHER CELLS 5
[2021-05-20] MEDS ORDERED: SPIRONOLACTONE 25 MG TAB PO SCH (21:00)
[2021-05-20] MEDS: MIDODRINE HCL 5 MG TABLET PO SCH (21:21)
[2021-05-21] MEDS ORDERED: FUROSEMIDE 20MG VIAL IV ONE (03:30)
[2021-05-21] MEDS: FUROSEMIDE 40MG VIAL IV SCH ×2 (03:30→15:30)
[2021-05-21] MEDS ORDERED: FUROSEMIDE 20MG VIAL ONE (03:30)
[2021-05-21 06:37] LABS: HEMATOCRIT 23.9 % (42-54); MEAN CORPUSCULAR HEMOGLOBIN 30.9 pg (27.0-33.0); MEAN CORPUSCULAR HGB CONC 34.3 g/dL (32.0-36.0); MEAN CORPUSCULAR VOLUME 90.2 fL (79-99); PLATELET COUNT (AUTO) 120 K/uL (130-400); RED BLOOD CELL COUNT(AUTO) 2.65 MIL/uL (4.50-6.20); RED CELL DISTRIBUTION WIDTH 14.2 % (11.0-15.5); WHITE BLOOD COUNT (AUTO) 6.8 K/uL (4.8-10.8)
[2021-05-21 06:45] LABS: INR 1.64 (0.85-1.15); PROTHROMBIN TIME 17.1 SEC (9.6-11.6)
[2021-05-21 06:46] LABS: CREATININE 1.2 mg/dL (0.5-1.5); POTASSIUM 5.8 mmol/L (3.5-5.1)
[2021-05-21 06:47] LABS: PARTIAL THROMBOPLASTIN TIME 44.1 SEC (26.3-35.5)
[2021-05-21 06:48] LABS: HEMOGLOBIN A1C 4.2 % (4.0-6.0)
[2021-05-21 07:29] LABS: BAND NEUTROPHILS % (MANUAL) 1 % (0-2); BASOPHILS % (MANUAL) 1 % (0-2); EOSINOPHILS % (MANUAL) 11 % (1-6); LYMPHOCYTES % (MANUAL) 20 % (22-44); MAN.DIFF COMMENT-IMPRESSION MANUAL DIFFERENTIAL; MONOCYTES % (MANUAL) 7 % (2-9); SEGMENTED NEUTROPHILS % 60 % (40-70)
[2021-05-21] MEDS: PANTOPRAZOLE 40 MG TAB DR PO SCH (07:41)
[2021-05-21 08:36] VITALS: BP 100/54
[2021-05-21] MEDS ORDERED: FUROSEMIDE 40 MG TABLET PO SCH (09:00)
[2021-05-21] MEDS: FOLIC ACID 1 MG TABLET PO SCH (11:13)
[2021-05-21] MEDS: CYANOCOBALAMIN (VITAMIN B-12) 1,000 MCG TABLET PO SCH (11:13)
[2021-05-21] MEDS: Vitamin B Complex/Vit C/Folic Acid PO SCH (11:13)
[2021-05-21] MEDS: MIDODRINE HCL 5 MG TABLET PO SCH ×3 (11:14→20:47)
[2021-05-21 12:00] VITALS: BP 116/57
[2021-05-21] MEDS ORDERED: NA ZIRCON CYCLOSIL(LOKELMA 10GM) PO SCH (14:00)
[2021-05-21] MEDS ORDERED: MIDODRINE HCL 5 MG TABLET PO SCH (14:00)
[2021-05-21] MEDS: ALBUMIN (HUMAN) 25% 50 ML IV SCH ×2 (15:23→20:55)
[2021-05-21 16:00] VITALS: BP 100/57
[2021-05-21 20:00] VITALS: BP 108/54
[2021-05-22] VITALS (12 sets, daily range): BP systolic 83–112; BP diastolic 39–59
[2021-05-22] MEDS: FUROSEMIDE 40MG VIAL IV SCH ×2 (03:39→14:48)
[2021-05-22 03:46] LABS: HEMATOCRIT 22.1 % (42-54); MEAN CORPUSCULAR HEMOGLOBIN 31.3 pg (27.0-33.0); MEAN CORPUSCULAR HGB CONC 34.4 g/dL (32.0-36.0); MEAN CORPUSCULAR VOLUME 90.9 fL (79-99); PLATELET COUNT (AUTO) 108 K/uL (130-400); RED BLOOD CELL COUNT(AUTO) 2.43 MIL/uL (4.50-6.20); WHITE BLOOD COUNT (AUTO) 6.5 K/uL (4.8-10.8)
[2021-05-22 03:49] LABS: CREATININE 1.3 mg/dL (0.5-1.5); PHOSPHORUS 3.8 mg/dL (2.5-4.9); POTASSIUM 5.8 mmol/L (3.5-5.1)
[2021-05-22 04:08] LABS: BASOPHILS % (MANUAL) 2 % (0-2); EOSINOPHILS % (MANUAL) 10 % (1-6); LYMPHOCYTES % (MANUAL) 19 % (22-44); MONOCYTES % (MANUAL) 2 % (2-9); SEGMENTED NEUTROPHILS % 67 % (40-70)
[2021-05-22 04:09] LABS: MAN.DIFF COMMENT-IMPRESSION MANUAL DIFFERENTIAL; PLATELET MORPHOLOGY COMMENT SLIGHTLY DECREASED
[2021-05-22] MEDS: ALBUMIN (HUMAN) 25% 50 ML IV SCH ×3 (06:07→21:42)
[2021-05-22] MEDS: PANTOPRAZOLE 40 MG TAB DR PO SCH ×2 (07:20→11:18)
[2021-05-22] MEDS: MIDODRINE HCL 5 MG TABLET PO SCH ×3 (08:52→21:42)
[2021-05-22] MEDS ORDERED: ONDANSETRON 4MG INJ IVP PRN (09:00)
[2021-05-22 09:11] LABS: HEMATOCRIT 23.7 % (42-54)
[2021-05-22] MEDS ORDERED: KAYEXALATE 15GM/60ML PO SCH (11:00)
[2021-05-22 11:01] LABS: ALBUMIN,BODY FLUID 1.2 g/dL; GLUCOSE,BODY FLUID 112 mg/dL (1-40)
[2021-05-22] MEDS: CYANOCOBALAMIN (VITAMIN B-12) 1,000 MCG TABLET PO SCH (11:17)
[2021-05-22] MEDS: Vitamin B Complex/Vit C/Folic Acid PO SCH (11:17)
[2021-05-22] MEDS: FOLIC ACID 1 MG TABLET PO SCH (11:18)
[2021-05-22 12:35] LABS: APPEARANCE BODY FLUID CLOUDY (CLEAR); COLOR,BODY FLUID RED (LT YELLOW); SPECIMENTYPE,BODY FLUID THORACENTESIS; TOTAL VOLUME,BODY FLUID 1600 mL
[2021-05-22 12:36] LABS: BODY FLUID RBC 96500 /cu. mm.; BODY FLUID WBC 325 /cu. mm.
[2021-05-22 12:42] LABS: BF BASOPHIL 1 %; BF EOSINOPHIL 5 %; BF LYMPHOCYTE 22 %; BF MESOTHELIAL 50 %; BF MONOCYTE 7 %
[2021-05-23] VITALS (11 sets, daily range): BP systolic 95–110; BP diastolic 46–66
[2021-05-23] MEDS: FUROSEMIDE 40MG VIAL IV SCH (03:31)
[2021-05-23] MEDS: ALBUMIN (HUMAN) 25% 50 ML IV SCH (05:07)
[2021-05-23 05:18] LABS: HEMATOCRIT 22.8 % (42-54); MEAN CORPUSCULAR HEMOGLOBIN 31.2 pg (27.0-33.0); MEAN CORPUSCULAR HGB CONC 34.6 g/dL (32.0-36.0); MEAN CORPUSCULAR VOLUME 90.1 fL (79-99); PLATELET COUNT (AUTO) 96 K/uL (130-400); RED BLOOD CELL COUNT(AUTO) 2.53 MIL/uL (4.50-6.20); RED CELL DISTRIBUTION WIDTH 14.3 % (11.0-15.5); WHITE BLOOD COUNT (AUTO) 6.2 K/uL (4.8-10.8)
[2021-05-23 05:28] LABS: CREATININE 1.2 mg/dL (0.5-1.5); POTASSIUM 4.8 mmol/L (3.5-5.1)
[2021-05-23 06:13] LABS: EOSINOPHILS % (MANUAL) 9 % (1-6); LYMPHOCYTES % (MANUAL) 20 % (22-44); MAN.DIFF COMMENT-IMPRESSION MANUAL DIFFERENTIAL; MONOCYTES % (MANUAL) 1 % (2-9); SEGMENTED NEUTROPHILS % 70 % (40-70)
[2021-05-23 06:14] LABS: PLATELET MORPHOLOGY COMMENT SLIGHTLY DECREASED
[2021-05-23] MEDS ORDERED: LACTULOSE 20 GM/30 ML UDCUP ONE (09:20)
[2021-05-23] MEDS: LACTULOSE 20 GM/30 ML UDCUP PO SCH ×3 (09:30→21:18)
[2021-05-23] MEDS: FOLIC ACID 1 MG TABLET PO SCH (09:32)
[2021-05-23] MEDS: MIDODRINE HCL 5 MG TABLET PO SCH ×3 (09:32→21:17)
[2021-05-23] MEDS: CYANOCOBALAMIN (VITAMIN B-12) 1,000 MCG TABLET PO SCH (09:32)
[2021-05-23] MEDS: Vitamin B Complex/Vit C/Folic Acid PO SCH (09:32)
[2021-05-23] MEDS ORDERED: POLYETHYLENE GLYCOL 3350 17 GM POWD.PACK PO SCH (10:00)
[2021-05-23] MEDS: FUROSEMIDE 40 MG TABLET PO SCH (10:05)
[2021-05-23] MEDS: ACETAMINOPHEN 325 MG TAB PO PRN (22:19)
[2021-05-24] VITALS: BP 104/58
[2021-05-24] MEDS: LACTULOSE 20 GM/30 ML UDCUP PO SCH ×2 (03:15→08:15)
[2021-05-24 04:00] VITALS: BP 95/48
[2021-05-24] MEDS: PANTOPRAZOLE 40 MG TAB DR PO SCH (05:41)
[2021-05-24 06:13] LABS: BASOPHILS % (AUTO) 1.1 % (0.0-5.0); EOSINOPHILS % (AUTO) 9.4 % (0.0-8.0); LYMPHOCYTES % (AUTO) 25.9 % (21.0-51.0); MEAN CORPUSCULAR HEMOGLOBIN 31.4 pg (27.0-33.0); MEAN CORPUSCULAR HGB CONC 35.2 g/dL (32.0-36.0); MEAN CORPUSCULAR VOLUME 89.1 fL (79-99); MONOCYTES % (AUTO) 10.7 % (3.0-13.0); NEUTROPHILS % (AUTO) 52.4 % (40.0-77.0); PLATELET COUNT (AUTO) 106 K/uL (130-400); RED BLOOD CELL COUNT(AUTO) 2.58 MIL/uL (4.50-6.20); RED CELL DISTRIBUTION WIDTH 14.5 % (11.0-15.5); WHITE BLOOD COUNT (AUTO) 6.1 K/uL (4.8-10.8)
[2021-05-24 06:32] LABS: CREATININE 1.2 mg/dL (0.5-1.5); POTASSIUM 4.6 mmol/L (3.5-5.1)
[2021-05-24 07:50] VITALS: BP 113/66
[2021-05-24] MEDS: CYANOCOBALAMIN (VITAMIN B-12) 1,000 MCG TABLET PO SCH (08:13)
[2021-05-24] MEDS: FOLIC ACID 1 MG TABLET PO SCH (08:13)
[2021-05-24] MEDS: Vitamin B Complex/Vit C/Folic Acid PO SCH (08:14)
[2021-05-24] MEDS: MIDODRINE HCL 5 MG TABLET PO SCH (08:14)
[2021-05-24] MEDS: FUROSEMIDE 40 MG TABLET PO SCH (08:14)
[2021-06-07] MEDS ORDERED: CIPR-278 PO (18:37)
[2021-06-07] MEDS ORDERED: FURO40TA5 PO (18:37)
[2021-06-07] MEDS ORDERED: AMIL5TAB8 PO (18:37)
[2021-06-07] MEDS ORDERED: LACT PO (18:37)
[2021-06-14] MEDS ORDERED: FOLATE PO (13:38)
[2021-06-16] MEDS ORDERED: CIPR500T10 PO (14:34)
== END 2021-05-24 11:00 | disposition home or self-care (01) | DRG 432 ==
LOC: EDH 08:40 → EDHIP 11:53 → 3DH 05-21 08:28
PROVIDERS: ADMIT Hospitalist; ATTEND Hospitalist
PROC: 0W993ZZ Drainage of Right Pleural Cavity, Percutaneous Approach (ICD-10-PCS; principal; 2021-05-22)
PROC: 0W9G3ZZ Drainage of Peritoneal Cavity, Percutaneous Approach (ICD-10-PCS; 2021-05-23)
DX: K70.31 Alcoholic cirrhosis of liver with ascites (principal); E43 Unspecified severe protein-calorie malnutrition; E87.1 Hypo-osmolality and hyponatremia; J94.2 Hemothorax; J98.11 Atelectasis; J94.8 Other specified pleural conditions; J90 Pleural effusion, not elsewhere classified; J93.9 Pneumothorax, unspecified; K72.90 Hepatic failure, unspecified without coma; E87.5 Hyperkalemia; E87.70 Fluid overload, unspecified; D69.6 Thrombocytopenia, unspecified; D63.8 Anemia in other chronic diseases classified elsewhere; F10.10 Alcohol abuse, uncomplicated; E88.09 Other disorders of plasma-protein metabolism, not elsewhere classified; Z68.24 Body mass index [BMI] 24.0-24.9, adult; Z86.19 Personal history of other infectious and parasitic diseases; Z82.49 Family history of ischemic heart disease and other diseases of the circulatory system
CPT/HCPCS: 36415; 49083; 70450; 71045; 71250; 74018; 80048; 80051; 80053; 81003; 82042; 82140; 82150; 82550; 82570; 82945; 83036; 83540; 83615; 83690; 83930; 83935; 83986; 84100; 84157; 84443; 84550; 85014; 85018; 85025; 85610; 85730; 86850; 86900; 86901; 86923; 87071; 87205; 89051; 96365; C1729; G0378; J1940; J2405; J3490; P9046; P9047

== ENCOUNTER → 2021-06-09 | Outpatient (CLI) | payer OTHER ==
[~2021-06-09] MED LIST changes: +AMIL5TAB8 PO; -CEFU500T67 PO; +CIPR-278 PO; +FURO40TA5 PO; -FURO40TA7 PO; +LACT PO; -LACT10SO9 PO; -PROP20TA7 PO; -SPIR50TA5 PO
[2021-06-09 12:51] LABS: SPECIMENTYPE,BODY FLUID ASCITES
[2021-06-09 12:52] LABS: APPEARANCE BODY FLUID CLOUDY (CLEAR); BODY FLUID RBC 925 /cu. mm.; BODY FLUID WBC 102 /cu. mm.; COLOR,BODY FLUID DARK YELLOW (LT YELLOW); TOTAL VOLUME,BODY FLUID 3000 mL
[2021-06-09 13:21] LABS: BF LYMPHOCYTE 45 %; BF MESOTHELIAL 35 %; BF MONOCYTE 14 %
== END | disposition home or self-care (01) ==
LOC: RAH 08:18
PROVIDERS: ATTEND Internal Medicine Gastroenterology
DX: R18.8 Other ascites (principal); K74.60 Unspecified cirrhosis of liver; K72.90 Hepatic failure, unspecified without coma; Z98.890 Other specified postprocedural states
CPT/HCPCS: 49083; 87071; 87205; 89051; C1729

== ENCOUNTER → 2021-08-21 | Outpatient (CLI) | payer OTHER ==
[~2021-08-21] MED LIST changes: -CIPR-278 PO; +CIPR500T10 PO; +FOLATE PO; -FOLI0.4T6 PO
== END | disposition home or self-care (01) ==
LOC: RAH 08:30
PROVIDERS: ATTEND Internal Medicine Gastroenterology
DX: K74.60 Unspecified cirrhosis of liver (principal); I86.8 Varicose veins of other specified sites; K76.89 Other specified diseases of liver; R18.8 Other ascites; R16.1 Splenomegaly, not elsewhere classified
CPT/HCPCS: 76700; 93975

== ENCOUNTER → 2021-12-12 | Outpatient (CLI) | payer OTHER, MEDICAID ==
[~2021-12-12] MED LIST changes: +ALBUMIN (HUMAN) 25% 200 ML IV ONE; +POTA-187 PO
[2021-12-12 11:53] LABS: HEMATOCRIT 25.9 % (42-54); MEAN CORPUSCULAR HEMOGLOBIN 29.2 pg (27.0-33.0); MEAN CORPUSCULAR VOLUME 91.2 fL (79-99); PLATELET COUNT (AUTO) 82 K/uL (130-400); RED BLOOD CELL COUNT(AUTO) 2.84 MIL/uL (4.50-6.20); RED CELL DISTRIBUTION WIDTH 13.9 % (11.0-15.5); WHITE BLOOD COUNT (AUTO) 3.4 K/uL (4.8-10.8)
[2021-12-12 12:06] LABS: INR 1.67 (0.85-1.15); PROTHROMBIN TIME 17.7 SEC (9.6-11.6)
[2021-12-12 12:07] LABS: PARTIAL THROMBOPLASTIN TIME 45.5 SEC (26.3-35.5)
[2021-12-12 12:19] LABS: BASOPHILS % (MANUAL) 3 % (0-2); EOSINOPHILS % (MANUAL) 8 % (1-6); LYMPHOCYTES % (MANUAL) 26 % (22-44); MAN.DIFF COMMENT-IMPRESSION MANUAL DIFFERENTIAL; MONOCYTES % (MANUAL) 15 % (2-9); PLATELET MORPHOLOGY COMMENT DECREASED; REACTIVE LYMPHOCYTES 1 % (0-0); SEGMENTED NEUTROPHILS % 47 % (40-70)
[2021-12-12 12:30] LABS: ALBUMIN 2.8 g/dL (3.5-5.0); CREATININE 0.8 mg/dL (0.5-1.5); POTASSIUM 3.1 mmol/L (3.5-5.1); TOTAL PROTEIN, SERUM 6.6 g/dL (6.0-8.3)
[2021-12-12 16:10] LABS: SPECIMENTYPE,BODY FLUID ASCITES
[2021-12-12 16:11] LABS: APPEARANCE BODY FLUID SLIGHTLY CLOUDY (CLEAR); BODY FLUID RBC 157 /cu. mm.; BODY FLUID WBC 45 /cu. mm.; COLOR,BODY FLUID YELLOW (LT YELLOW); TOTAL VOLUME,BODY FLUID 6000 mL
[2021-12-12 16:31] LABS: BF LYMPHOCYTE 24 %; BF MONOCYTE 3 %
== END | disposition home or self-care (01) ==
LOC: RAH 08:48
PROVIDERS: ATTEND Internal Medicine Gastroenterology
DX: R18.8 Other ascites (principal); K74.60 Unspecified cirrhosis of liver; K72.90 Hepatic failure, unspecified without coma; Z79.01 Long term (current) use of anticoagulants
CPT/HCPCS: 36415; 49083; 80053; 85025; 85610; 85730; 89051; C1729; P9046; 96365

== ENCOUNTER → 2021-12-19 | Outpatient (CLI) | payer OTHER, MEDICAID ==
[~2021-12-19] MED LIST changes: -ALBUMIN (HUMAN) 25% 200 ML IV ONE; +SPIR50TA PO
== END | disposition home or self-care (01) ==
LOC: RAH 12:13
PROVIDERS: ATTEND Internal Medicine Gastroenterology
DX: J90 Pleural effusion, not elsewhere classified (principal); J98.11 Atelectasis
CPT/HCPCS: 71046

== ENCOUNTER → 2022-01-07 | Outpatient (CLI) | payer MEDICAID, OTHER ==
[~2022-01-07] MED LIST changes: -CYAN-52 PO; -POTA-187 PO
== END | disposition home or self-care (01) ==
LOC: RAH 10:08
PROVIDERS: ATTEND Internal Medicine
DX: K70.30 Alcoholic cirrhosis of liver without ascites (principal); F10.21 Alcohol dependence, in remission; R18.8 Other ascites; K72.91 Hepatic failure, unspecified with coma; J90 Pleural effusion, not elsewhere classified; J91.8 Pleural effusion in other conditions classified elsewhere
CPT/HCPCS: 76705; 93975

== ENCOUNTER → 2022-01-09 | Outpatient (CLI) | payer MEDICAID, OTHER ==
[~2022-01-09] MED LIST changes: +ALBUMIN (HUMAN) 25% 200 ML IV SCH
[2022-01-09 11:52] LABS: APPEARANCE BODY FLUID TURBID (CLEAR); COLOR,BODY FLUID YELLOW (LT YELLOW); SPECIMENTYPE,BODY FLUID ASCITES; TOTAL VOLUME,BODY FLUID 4700 mL
[2022-01-09 12:16] LABS: BODY FLUID WBC 99 /cu. mm.
[2022-01-09 12:17] LABS: BODY FLUID RBC 171 /cu. mm.
[2022-01-09 16:19] LABS: BF LYMPHOCYTE 22 %; BF MONOCYTE 1 %
== END | disposition home or self-care (01) ==
LOC: RAH 08:05
PROVIDERS: ATTEND Internal Medicine Gastroenterology
DX: R18.8 Other ascites (principal); K74.60 Unspecified cirrhosis of liver; D64.9 Anemia, unspecified; Z79.01 Long term (current) use of anticoagulants; Z79.899 Other long term (current) drug therapy; Z98.890 Other specified postprocedural states; Z72.89 Other problems related to lifestyle
CPT/HCPCS: 49083; 89051; P9046; C1729; 96365

== ENCOUNTER → 2022-01-16 | Outpatient (CLI) | payer MEDICAID ==
[~2022-01-16] MED LIST changes: +ALBUMIN (HUMAN) 25% 100 ML IV SCH; -ALBUMIN (HUMAN) 25% 200 ML IV SCH; +LIDOCAINE HCL-MPF 1% 2ML VIAL ONE
[2022-01-16] MEDS: ALBUMIN (HUMAN) 25% 200 ML IV SCH ×2 (12:21→14:15)
[2022-01-16 13:57] LABS: BF LYMPHOCYTE 22 %; BF MESOTHELIAL 32 %; BF MONOCYTE 2 %
[2022-01-16 15:02] LABS: APPEARANCE BODY FLUID SLIGHTLY CLOUDY (CLEAR); COLOR,BODY FLUID YELLOW (LT YELLOW); SPECIMENTYPE,BODY FLUID ASCITES
[2022-01-16 15:03] LABS: BODY FLUID RBC 315 /cu. mm.; BODY FLUID WBC 90 /cu. mm.; TOTAL VOLUME,BODY FLUID 3600 mL
== END ==
LOC: RAH 07:30
PROVIDERS: ATTEND Internal Medicine Gastroenterology
DX: R18.8 Other ascites (principal); K74.60 Unspecified cirrhosis of liver; D64.9 Anemia, unspecified; Z79.01 Long term (current) use of anticoagulants; Z79.899 Other long term (current) drug therapy; Z98.890 Other specified postprocedural states; Z72.89 Other problems related to lifestyle
CPT/HCPCS: 49083; 89051; P9046 ×2; J3490; C1729; 96365

== ENCOUNTER → 2022-01-29 | Outpatient (CLI) | payer MEDICAID ==
[~2022-01-29] MED LIST changes: -ALBUMIN (HUMAN) 25% 100 ML IV SCH; -LIDOCAINE HCL-MPF 1% 2ML VIAL ONE
== END | disposition home or self-care (01) ==
LOC: RAH 12:07
PROVIDERS: ATTEND Internal Medicine
DX: K70.31 Alcoholic cirrhosis of liver with ascites (principal); J91.8 Pleural effusion in other conditions classified elsewhere; K72.91 Hepatic failure, unspecified with coma; J90 Pleural effusion, not elsewhere classified; F10.21 Alcohol dependence, in remission
CPT/HCPCS: 76770

== ENCOUNTER 2022-02-11 06:40 | Emergency (ER) | payer MEDICAID ==
[~2022-02-11] VITALS: Ht 167.6 cm; Wt 90.7 kg
[2022-02-11 07:15] LABS: BASOPHILS % (AUTO) 0.5 % (0.0-5.0); EOSINOPHILS % (AUTO) 0.6 % (0.0-8.0); HEMATOCRIT 30.2 % (42-54); LYMPHOCYTES % (AUTO) 19.4 % (21.0-51.0); MEAN CORPUSCULAR HEMOGLOBIN 30.1 pg (27.0-33.0); MEAN CORPUSCULAR HGB CONC 33.8 g/dL (32.0-36.0); MEAN CORPUSCULAR VOLUME 89.1 fL (79-99); MONOCYTES % (AUTO) 12.8 % (3.0-13.0); NEUTROPHILS % (AUTO) 65.8 % (40.0-77.0); PLATELET COUNT (AUTO) 121 K/uL (130-400); RED BLOOD CELL COUNT(AUTO) 3.39 MIL/uL (4.50-6.20); RED CELL DISTRIBUTION WIDTH 13.9 % (11.0-15.5); WHITE BLOOD COUNT (AUTO) 9.8 K/uL (4.8-10.8)
[2022-02-11 07:26] LABS: INR 1.77 (0.85-1.15); PROTHROMBIN TIME 18.7 SEC (9.6-11.6)
[2022-02-11 07:27] LABS: PARTIAL THROMBOPLASTIN TIME 42.9 SEC (26.3-35.5)
[2022-02-11 07:30] LABS: ALBUMIN 2.4 g/dL (3.5-5.0); POTASSIUM 3.5 mmol/L (3.5-5.1); TOTAL PROTEIN, SERUM 6.8 g/dL (6.0-8.3)
[2022-02-11] MEDS ORDERED: ALBUMIN (HUMAN) 25% 100 ML IV PRN (09:30)
[2022-02-11 10:30] VITALS: BP 118/73
== END 2022-02-11 11:15 | disposition home or self-care (01) ==
LOC: EDH 06:40
DX: R18.8 Other ascites (principal); K74.60 Unspecified cirrhosis of liver; E78.00 Pure hypercholesterolemia, unspecified; I10 Essential (primary) hypertension; Z98.890 Other specified postprocedural states; Z79.899 Other long term (current) drug therapy
CPT/HCPCS: 49083; 99285; 96365; 80053; 85025; 85610; 85730; 86850; 86900; 86901; 36415; 93005; P9046; C1729

== ENCOUNTER → 2022-02-13 | Outpatient (CLI) | payer MEDICAID ==
[~2022-02-13] MED LIST changes: +ALBUMIN (HUMAN) 25% 200 ML IV ONE; +ALBUMIN (HUMAN) 25% 200 ML IV SCH; +LIDOCAINE HCL MPF 1% 5ML VIAL ONE
[2022-02-13 09:10] LABS: BASOPHILS % (AUTO) 0.5 % (0.0-5.0); EOSINOPHILS % (AUTO) 2.4 % (0.0-8.0); HEMATOCRIT 28.1 % (42-54); MEAN CORPUSCULAR HEMOGLOBIN 29.7 pg (27.0-33.0); MEAN CORPUSCULAR HGB CONC 33.5 g/dL (32.0-36.0); MEAN CORPUSCULAR VOLUME 88.9 fL (79-99); MONOCYTES % (AUTO) 12.7 % (3.0-13.0); NEUTROPHILS % (AUTO) 62.7 % (40.0-77.0); PLATELET COUNT (AUTO) 121 K/uL (130-400); RED BLOOD CELL COUNT(AUTO) 3.16 MIL/uL (4.50-6.20); RED CELL DISTRIBUTION WIDTH 13.6 % (11.0-15.5); WHITE BLOOD COUNT (AUTO) 5.8 K/uL (4.8-10.8)
[2022-02-13 09:18] LABS: ALBUMIN 2.2 g/dL (3.5-5.0); CREATININE 0.9 mg/dL (0.5-1.5); POTASSIUM 3.3 mmol/L (3.5-5.1); TOTAL PROTEIN, SERUM 6.5 g/dL (6.0-8.3)
[2022-02-13 09:30] LABS: INR 1.69 (0.85-1.15); PROTHROMBIN TIME 17.9 SEC (9.6-11.6)
[2022-02-13 15:21] LABS: APPEARANCE BODY FLUID CLEAR (CLEAR); COLOR,BODY FLUID DARK YELLOW (LT YELLOW); SPECIMENTYPE,BODY FLUID ASCITES; TOTAL VOLUME,BODY FLUID 9500 mL
[2022-02-13 15:24] LABS: BODY FLUID RBC 283 /cu. mm.; BODY FLUID WBC 50 /cu. mm.
[2022-02-13 15:28] LABS: BF LYMPHOCYTE 35 %
== END | disposition home or self-care (01) ==
LOC: RAH 08:00
PROVIDERS: ATTEND Internal Medicine Gastroenterology
DX: K70.31 Alcoholic cirrhosis of liver with ascites (principal); D64.9 Anemia, unspecified; Z79.01 Long term (current) use of anticoagulants; Z79.899 Other long term (current) drug therapy; Z98.890 Other specified postprocedural states; Z72.89 Other problems related to lifestyle
CPT/HCPCS: 49083; 80053; 85025; 89051; 85610; 85730; 36415; P9046; J3490; C1729; 96365

== ENCOUNTER → 2022-02-20 | Outpatient (CLI) | payer MEDICAID ==
[~2022-02-20] MED LIST changes: -ALBUMIN (HUMAN) 25% 200 ML IV ONE; -LIDOCAINE HCL MPF 1% 5ML VIAL ONE
[2022-02-20 15:45] LABS: APPEARANCE BODY FLUID CLEAR (CLEAR); COLOR,BODY FLUID YELLOW (LT YELLOW); SPECIMENTYPE,BODY FLUID ASCITES; TOTAL VOLUME,BODY FLUID 12500 mL
[2022-02-20 15:47] LABS: BODY FLUID WBC 90 /cu. mm.
[2022-02-20 15:48] LABS: BODY FLUID RBC 83 /cu. mm.
[2022-02-20 15:53] LABS: BF EOSINOPHIL 1 %; BF LYMPHOCYTE 41 %; BF MESOTHELIAL 1 %
== END | disposition home or self-care (01) ==
LOC: RAH 08:05
PROVIDERS: ATTEND Internal Medicine Gastroenterology
DX: R18.8 Other ascites (principal); K74.60 Unspecified cirrhosis of liver; D64.9 Anemia, unspecified; K65.2 Spontaneous bacterial peritonitis; J90 Pleural effusion, not elsewhere classified; Z79.899 Other long term (current) drug therapy; Z79.01 Long term (current) use of anticoagulants
CPT/HCPCS: 49083; 89051; P9046; C1729; 96365

== ENCOUNTER → 2022-03-20 | Outpatient (CLI) | payer MEDICAID ==
[~2022-03-20] MED LIST changes: +ALBUMIN (HUMAN) 25% 200 ML IV ONE; -ALBUMIN (HUMAN) 25% 200 ML IV SCH
[2022-03-20 09:50] LABS: HEMATOCRIT 28.6 % (42-54); MEAN CORPUSCULAR HEMOGLOBIN 30.3 pg (27.0-33.0); MEAN CORPUSCULAR HGB CONC 32.9 g/dL (32.0-36.0); MEAN CORPUSCULAR VOLUME 92.3 fL (79-99); PLATELET COUNT (AUTO) 106 K/uL (130-400); RED CELL DISTRIBUTION WIDTH 15.2 % (11.0-15.5); WHITE BLOOD COUNT (AUTO) 4.1 K/uL (4.8-10.8)
[2022-03-20 10:04] LABS: ALBUMIN 2.7 g/dL (3.5-5.0); POTASSIUM 3.8 mmol/L (3.5-5.1); TOTAL PROTEIN, SERUM 7.4 g/dL (6.0-8.3)
[2022-03-20 10:14] LABS: INR 1.38 (0.85-1.15); PROTHROMBIN TIME 14.8 SEC (9.6-11.6)
[2022-03-20 10:15] LABS: PARTIAL THROMBOPLASTIN TIME 36.7 SEC (26.3-35.5)
[2022-03-20 11:19] LABS: LYMPHOCYTES % (MANUAL) 22 % (22-44); MAN.DIFF COMMENT-IMPRESSION MANUAL DIFFERENTIAL; MONOCYTES % (MANUAL) 4 % (2-9); SEGMENTED NEUTROPHILS % 74 % (40-70)
[2022-03-20 11:21] LABS: PLATELET MORPHOLOGY COMMENT SLIGHTLY DECREASED
== END | disposition home or self-care (01) ==
LOC: RAH 09:03
PROVIDERS: ATTEND Internal Medicine Gastroenterology
DX: R18.8 Other ascites (principal); K74.60 Unspecified cirrhosis of liver
CPT/HCPCS: 76705; 80053; 85025; 85610; 85730; 36415; P9046

== ENCOUNTER → 2022-04-29 | Outpatient (CLI) | payer MEDICAID ==
[~2022-04-29] MED LIST changes: +LIDOCAINE HCL 1% 20 ML VIAL ONE
[2022-04-29 13:36] LABS: APPEARANCE BODY FLUID CLEAR (CLEAR); COLOR,BODY FLUID YELLOW (LT YELLOW); SPECIMENTYPE,BODY FLUID ASCITES
[2022-04-29 13:37] LABS: BODY FLUID WBC 97 /cu. mm.; TOTAL VOLUME,BODY FLUID 6300 mL
[2022-04-29 13:38] LABS: BODY FLUID RBC 275 /cu. mm.
[2022-04-29 15:15] LABS: BF LYMPHOCYTE 44 %; BF MESOTHELIAL 9 %
== END | disposition home or self-care (01) ==
LOC: RAH 07:56
PROVIDERS: ATTEND Internal Medicine Gastroenterology
DX: R18.8 Other ascites (principal); K74.69 Other cirrhosis of liver; K72.90 Hepatic failure, unspecified without coma; D64.9 Anemia, unspecified; Z79.899 Other long term (current) drug therapy; Z79.01 Long term (current) use of anticoagulants
CPT/HCPCS: 49083; 89051; P9046; C1729

== ENCOUNTER → 2022-05-07 | Outpatient (CLI) | payer MEDICAID ==
[~2022-05-07] MED LIST changes: -ALBUMIN (HUMAN) 25% 200 ML IV ONE; +ALBUMIN (HUMAN) 25% 200 ML IV SCH; -LIDOCAINE HCL 1% 20 ML VIAL ONE
[2022-05-07 14:39] LABS: ALBUMIN,BODY FLUID 0.7 g/dL
[2022-05-07 16:47] LABS: APPEARANCE BODY FLUID CLOUDY (CLEAR); SPECIMENTYPE,BODY FLUID ASCITES
[2022-05-07 16:48] LABS: BODY FLUID RBC 2480 /cu. mm.; BODY FLUID WBC 150 /cu. mm.; COLOR,BODY FLUID YELLOW (LT YELLOW); TOTAL VOLUME,BODY FLUID 3500 mL
[2022-05-07 17:12] LABS: BF LYMPHOCYTE 51 %; BF MESOTHELIAL 44 %
== END | disposition home or self-care (01) ==
LOC: RAH 16:56
PROVIDERS: ATTEND Internal Medicine Gastroenterology
DX: R18.8 Other ascites (principal); K74.69 Other cirrhosis of liver; K40.90 Unilateral inguinal hernia, without obstruction or gangrene, not specified as recurrent; K72.90 Hepatic failure, unspecified without coma; J90 Pleural effusion, not elsewhere classified; K65.2 Spontaneous bacterial peritonitis; Z79.899 Other long term (current) drug therapy; Z79.01 Long term (current) use of anticoagulants
CPT/HCPCS: 49083; 84157; 89051; 87071; 87076; 87205; 82042; 88108; 88305; P9046; C1729

== ENCOUNTER → 2022-05-14 | Outpatient (CLI) | payer MEDICAID ==
[~2022-05-14] MED LIST changes: +LIDOCAINE HCL 1% 20 ML VIAL ONE
[2022-05-14 10:51] LABS: ALBUMIN,BODY FLUID 0.8 g/dL
[2022-05-14 12:57] LABS: APPEARANCE BODY FLUID CLOUDY (CLEAR); SPECIMENTYPE,BODY FLUID ASCITES
[2022-05-14 12:58] LABS: BODY FLUID RBC 1225 /cu. mm.; BODY FLUID WBC 169 /cu. mm.; COLOR,BODY FLUID YELLOW (LT YELLOW); TOTAL VOLUME,BODY FLUID 1700 mL
[2022-05-14 13:10] LABS: BF LYMPHOCYTE 33 %; BF MESOTHELIAL 59 %; BF MONOCYTE 7 %
== END | disposition home or self-care (01) ==
LOC: RAH 08:20
PROVIDERS: ATTEND Internal Medicine Gastroenterology
DX: R18.8 Other ascites (principal); K74.60 Unspecified cirrhosis of liver; K65.2 Spontaneous bacterial peritonitis; J90 Pleural effusion, not elsewhere classified; R93.3 Abnormal findings on diagnostic imaging of other parts of digestive tract; K72.90 Hepatic failure, unspecified without coma; K40.90 Unilateral inguinal hernia, without obstruction or gangrene, not specified as recurrent; Z79.899 Other long term (current) drug therapy
CPT/HCPCS: 49083; 84157; 89051; 87071; 87076; 87205; 82042; 88108; 88305; C1729

== ENCOUNTER → 2022-05-15 | Outpatient (CLI) | payer MEDICAID ==
[~2022-05-15] MED LIST changes: -ALBUMIN (HUMAN) 25% 200 ML IV SCH; -LIDOCAINE HCL 1% 20 ML VIAL ONE
== END | disposition home or self-care (01) ==
LOC: RAH 07:50
PROVIDERS: ATTEND Internal Medicine Gastroenterology
DX: K80.20 Calculus of gallbladder without cholecystitis without obstruction (principal); R18.8 Other ascites; K74.60 Unspecified cirrhosis of liver
CPT/HCPCS: 76700

== ENCOUNTER → 2022-05-29 | Outpatient (CLI) | payer MEDICAID ==
[~2022-05-29] MED LIST changes: +ALBUMIN (HUMAN) 25% 200 ML IV SCH
== END | disposition home or self-care (01) ==
LOC: RAH 08:00
PROVIDERS: ATTEND Internal Medicine Gastroenterology
DX: R18.8 Other ascites (principal); K74.69 Other cirrhosis of liver; J90 Pleural effusion, not elsewhere classified; K72.90 Hepatic failure, unspecified without coma; K65.2 Spontaneous bacterial peritonitis; Z79.01 Long term (current) use of anticoagulants; Z79.899 Other long term (current) drug therapy
CPT/HCPCS: 76705; P9046

== ENCOUNTER → 2022-06-11 | Outpatient (CLI) | payer MEDICAID ==
[2022-06-11 10:17] LABS: BASOPHILS % (AUTO) 1.2 % (0.0-5.0); EOSINOPHILS % (AUTO) 8.2 % (0.0-8.0); HEMATOCRIT 32.7 % (42-54); LYMPHOCYTES % (AUTO) 38.1 % (21.0-51.0); MEAN CORPUSCULAR HEMOGLOBIN 29.5 pg (27.0-33.0); MEAN CORPUSCULAR VOLUME 89.3 fL (79-99); MONOCYTES % (AUTO) 8.6 % (3.0-13.0); NEUTROPHILS % (AUTO) 43.7 % (40.0-77.0); PLATELET COUNT (AUTO) 125 K/uL (130-400); RED BLOOD CELL COUNT(AUTO) 3.66 MIL/uL (4.50-6.20); WHITE BLOOD COUNT (AUTO) 4.3 K/uL (4.8-10.8)
[2022-06-11 10:27] LABS: INR 1.17 (0.85-1.15); PROTHROMBIN TIME 12.6 SEC (9.6-11.6)
[2022-06-11 10:28] LABS: PARTIAL THROMBOPLASTIN TIME 33.8 SEC (26.3-35.5)
[2022-06-11 10:32] LABS: ALBUMIN 2.7 g/dL (3.5-5.0); TOTAL PROTEIN, SERUM 7.4 g/dL (6.0-8.3)
== END | disposition home or self-care (01) ==
LOC: RAH 09:18
PROVIDERS: ATTEND Internal Medicine Gastroenterology
DX: R18.8 Other ascites (principal); Z79.01 Long term (current) use of anticoagulants; Z79.899 Other long term (current) drug therapy
CPT/HCPCS: 36415; 76705; 80053; 85025; 85610; 85730; P9046

== ENCOUNTER → 2022-06-22 | Outpatient (CLI) | payer MEDICAID ==
[~2022-06-22] MED LIST changes: -ALBUMIN (HUMAN) 25% 200 ML IV SCH
[2022-06-22 09:14] LABS: BASOPHILS % (AUTO) 1.3 % (0.0-5.0); EOSINOPHILS % (AUTO) 9.6 % (0.0-8.0); HEMATOCRIT 29.4 % (42-54); LYMPHOCYTES % (AUTO) 36.1 % (21.0-51.0); MEAN CORPUSCULAR HEMOGLOBIN 29.6 pg (27.0-33.0); MEAN CORPUSCULAR HGB CONC 33.3 g/dL (32.0-36.0); MEAN CORPUSCULAR VOLUME 88.8 fL (79-99); MONOCYTES % (AUTO) 9.4 % (3.0-13.0); NEUTROPHILS % (AUTO) 43.4 % (40.0-77.0); PLATELET COUNT (AUTO) 106 K/uL (130-400); RED BLOOD CELL COUNT(AUTO) 3.31 MIL/uL (4.50-6.20); RED CELL DISTRIBUTION WIDTH 14.4 % (11.0-15.5); WHITE BLOOD COUNT (AUTO) 4.5 K/uL (4.8-10.8)
[2022-06-22 09:29] LABS: ALBUMIN 2.4 g/dL (3.5-5.0); POTASSIUM 3.6 mmol/L (3.5-5.1); TOTAL PROTEIN, SERUM 6.6 g/dL (6.0-8.3)
[2022-06-22 10:01] LABS: INR 1.23 (0.85-1.15); PROTHROMBIN TIME 13.2 SEC (9.6-11.6)
[2022-06-22 10:02] LABS: PARTIAL THROMBOPLASTIN TIME 35.1 SEC (26.3-35.5)
== END | disposition home or self-care (01) ==
LOC: LAB 08:36
PROVIDERS: ATTEND Internal Medicine Gastroenterology
DX: R93.3 Abnormal findings on diagnostic imaging of other parts of digestive tract (principal); K74.60 Unspecified cirrhosis of liver; K72.90 Hepatic failure, unspecified without coma
CPT/HCPCS: 36415; 80053; 82105; 85025; 85610; 85730

== ENCOUNTER → 2022-06-26 | Outpatient (CLI) | payer MEDICAID | END | disposition home or self-care (01) | LOC: RAH 08:55 | PROVIDERS: ATTEND Internal Medicine Gastroenterology | DX: R18.8 Other ascites (principal) | CPT/HCPCS: 76705 ==

== ENCOUNTER → 2022-07-02 | Outpatient (CLI) | payer MEDICAID | END | disposition home or self-care (01) | LOC: RAH 09:50 | PROVIDERS: ATTEND Internal Medicine Gastroenterology | DX: R18.8 Other ascites (principal) | CPT/HCPCS: 76705 ==

== ENCOUNTER → 2022-11-24 | Outpatient (CLI) | payer MEDICAID | END | disposition home or self-care (01) | LOC: RAH 07:36 | PROVIDERS: ATTEND Internal Medicine Transplant Hepatology | DX: K74.60 Unspecified cirrhosis of liver (principal); K76.0 Fatty (change of) liver, not elsewhere classified; J90 Pleural effusion, not elsewhere classified; K72.91 Hepatic failure, unspecified with coma; J91.8 Pleural effusion in other conditions classified elsewhere; F10.21 Alcohol dependence, in remission; R16.1 Splenomegaly, not elsewhere classified; I83.93 Asymptomatic varicose veins of bilateral lower extremities | CPT/HCPCS: 76700; 93975 ==

== ENCOUNTER → 2023-06-23 | Outpatient (CLI) | payer MEDICAID | END | disposition home or self-care (01) | LOC: RAH 09:02 | PROVIDERS: ATTEND Internal Medicine Transplant Hepatology | DX: J90 Pleural effusion, not elsewhere classified (principal); K76.89 Other specified diseases of liver; R18.8 Other ascites; K72.91 Hepatic failure, unspecified with coma; F10.21 Alcohol dependence, in remission; K80.20 Calculus of gallbladder without cholecystitis without obstruction; R16.1 Splenomegaly, not elsewhere classified; Z96.89 Presence of other specified functional implants | CPT/HCPCS: 76700; 93975 ==

== ENCOUNTER → 2024-05-12 | Outpatient (CLI) | payer MEDICAID ==
[~2024-05-12] MED LIST changes: -MIDO10TA PO; +MIDO10TA3 PO
--- NOTE | 2024-05-12 10:12 | HMCIMG ---
US ABDOMEN CMP W DOPPLERS HISTORY: Alcohol dependence COMPARISON: 06/23/2019 TECHNIQUE: Multiple transverse and longitudinal ultrasound images of the abdomen were obtained. FINDINGS: Abdominal aorta and inferior vena cava are unremarkable. The visualized portion of the pancreas is within normal limits. Liver is echogenic consistent with liver parenchymal disease. Liver measured 13 cm. There is right hepatic cyst measuring 8 mm. Gallstones are seen in the gallbladder. Common duct measures 5 mm. No evidence of gallbladder wall thickening is seen. Both kidneys are seen. Right kidney measures 4.5 x 4.5 x 4.6 cm. Left kidney measures 11.9 x 5.6 x 5.7 cm. No hydronephrosis is seen of the both kidneys. Spleen is enlarged measuring 17 cm. The spleen is grossly unremarkable. Abdominal Doppler ultrasound study was performed. The portal vein is patent with hepatopedal flow with flow velocity of 29 cm/s. Flow velocity for left hepatic vein is 44 cm/s, middle hepatic vein is 40 cm/s, right hepatic vein is 71 cm/s and splenic vein is 54 cm/s. Hepatic artery is patent with peak systolic velocity of 107 cm/s and resistive index of 0.77. TIPS is patent with flow velocity of 175 cm/s proximally, 166 cm/s at mid aspect and 114 cm/s distally. IMPRESSION: 1. Liver cirrhosis with enlarged spleen . Gallstones. No ductal dilatation is seen. 2. No hydronephrosis is seen. TIPS is patent.
== END | disposition home or self-care (01) ==
LOC: RAH 08:31
PROVIDERS: ATTEND Nurse Practitioner Acute Care
DX: K80.20 Calculus of gallbladder without cholecystitis without obstruction (principal); F10.21 Alcohol dependence, in remission; K72.91 Hepatic failure, unspecified with coma; J90 Pleural effusion, not elsewhere classified; J91.8 Pleural effusion in other conditions classified elsewhere; K74.60 Unspecified cirrhosis of liver
CPT/HCPCS: 76700; 93975

== ENCOUNTER → 2025-04-03 | Outpatient (CLI) | payer MEDICAID ==
[~2025-04-03] MED LIST changes: +CIPR-514 PO; -CIPR500T10 PO
--- NOTE | 2025-04-03 18:42 | HMCIMG ---
EXAM: US Abdomen Complete CLINICAL HISTORY: Alcohol dependence, in remission. TECHNIQUE: Real-time ultrasound of the abdomen (complete) with image documentation. COMPARISON: None provided. FINDINGS: LIVER: Liver measures 10.9 cm, coarse echotexture. Right lobe cyst measuring 8 ??? 7 ??? 7 mm, appearing stable. No intrahepatic biliary dilatation. Contours smooth. GALLBLADDER: Wall normal. No gallstones or pericholecystic fluid. COMMON BILE DUCT: Obscured. No definite dilatation seen. PANCREAS: Tail obscured by bowel gas; visualized portions appear unremarkable. KIDNEYS: Right kidney 11.6 ??? 4.9 cm; left kidney 11.9 ??? 4.7 ??? 5.3 cm. Normal cortical echotexture. No calculus, mass, or hydronephrosis. SPLEEN: Measures 13.8 cm, mildly enlarged. Echotexture normal. AORTA: Proximal, mid, and distal segments well visualized and within normal limits. IVC: Unremarkable as visualized. HEPATIC DOPPLER: Portal vein 0.9 cm with hepatopetal flow; velocity 15 cm/s. No thrombosis. Hepatic artery velocity 97 cm/s, RI 0.82. Hepatic veins patent. SPLENIC VEIN: Patent with normal hepatopetal flow. MISCELLANEOUS: Exam partially limited by overlying bowel gas. IMPRESSION: * Coarse hepatic echotexture suggesting parenchymal disease. Stable small right hepatic lobe cyst (8 ??? 7 ??? 7 mm). * Mild splenomegaly. * No biliary dilatation, portal vein thrombosis, or ascites. * Other abdominal organs appear within normal limits. /[place]
== END | disposition home or self-care (01) ==
LOC: RAH 08:44
PROVIDERS: ATTEND Internal Medicine Gastroenterology
DX: K72.91 Hepatic failure, unspecified with coma (principal); J90 Pleural effusion, not elsewhere classified; K40.90 Unilateral inguinal hernia, without obstruction or gangrene, not specified as recurrent; R16.1 Splenomegaly, not elsewhere classified; K76.89 Other specified diseases of liver; R18.8 Other ascites; J91.8 Pleural effusion in other conditions classified elsewhere; F10.21 Alcohol dependence, in remission; Z96.89 Presence of other specified functional implants
CPT/HCPCS: 76700; 93975

== ENCOUNTER 2025-04-09 06:37 | Day surgery (SDC) | payer MEDICAID ==
[2025-04-05 10:12] LABS: IMMATURE GRANULOCYTE ABSOLUTE 0.02 K/uL (0-1); NUCLEATED RED BLOOD CELLS 0.0 % (0.0-0.19); PLATELET COUNT (AUTO) 125 K/uL (130-400); RED BLOOD CELL COUNT(AUTO) 4.92 MIL/uL (4.50-6.20); RED CELL DISTRIBUTION WIDTH 14.6 % (11.0-15.5); WHITE BLOOD COUNT (AUTO) 5.5 K/uL (4.8-10.8)
[2025-04-05 10:18] LABS: CREATININE 0.8 mg/dL (0.5-1.3); GLOMERULAR FILTR. RATE CALC 101.0 mL/min (>90); GLUCOSE,RANDOM 95.0 mg/dL (70-105); SODIUM SERUM 141.0 mmol/L (136-145); UREA NITROGEN, BLOOD 10.0 mg/dL (7-18)
[2025-04-05 10:51] VITALS: BP 134/79; PULSE 79; RESP 18; TEMP 97.3
[2025-04-09] VITALS (11 sets, daily range): BP systolic 97–128; BP diastolic 51–81; PULSE 71–83; RESP 15–19; TEMP 97–98.2
[~2025-04-09] VITALS: Ht 167.6 cm; Wt 101.6 kg
[~2025-04-09 06:37] MED LIST changes: +ALBU18HF7 IH; -AMIL5TAB8 PO; -CIPR-514 PO; -FOLATE PO; -FURO40TA5 PO; -SPIR50TA PO
[2025-04-09] MEDS ORDERED: LACTATED RINGERS 1000ML 1,000 ML IV ONE (06:49)
[2025-04-09] MEDS ORDERED: PROMETHAZINE HCL 25 MG/ML 1ML AMPULE IM PRN (08:00)
[2025-04-09] MEDS ORDERED: MIDAZOLAM HCL 1 MG/ML 2ML VIAL ONE ×2 (08:08→08:42)
[2025-04-09] MEDS ORDERED: LIDOCAINE PF 100MG/5ML (2%) SYRINGE 5ML ONE (08:12)
[2025-04-09] MEDS: LIDOCAINE HCL 1% 20 ML VIAL INJ ONE (08:12)
[2025-04-09] MEDS ORDERED: LIDOCAINE HCL 1% 20 ML VIAL ONE (08:29)
--- NOTE | 2025-04-09 08:59 | OP ---
Operative Note: DATE OF PROCEDURE: 04/09/25 SURGEON: KRISTIN PRASAD MD ARTIFICIAL CANDY MAKER: [] ANESTHESIA: [] Mac with local ANESTHESIOLOGIST/CLINICAL MEDICAL ASSISTANT: [] PREOPERATIVE DIAGNOSIS: [] Lipoma of the right shoulder POSTOPERATIVE DIAGNOSIS: [] Sebaceous cyst of the right shoulder SYNOPSIS: [] PROCEDURE: [] Excision of sebaceous cysts the right shoulder ESTIMATED BLOOD LOSS: [] Minimal INDICATIONS: [] DESCRIPTION OF PROCEDURE: [] With the patient prepped in the usual fashion and conscious sedation, I placed lidocaine 10 cc before incision. An incision was done in the right shoulder. Immediately we obtained significant amount of the sebaceous she is cyst content with no evidence of infection. The wall of sebaceous cyst was removed completely using cautery and blunt dissection. After this was done we cauterized bleeding points we approximated the subcu tissue with a 3-0 Vicryl. We placed 3-0 nylon interrupted for skin. We placed 10 cc of Marcaine at the end of the procedure. Procedure was completed without any complication KRISTIN PRASAD MD Apr 09, 2025 08:58
--- NOTE | 2025-04-09 09:40 | NUR ---
POST-RECOVERY LEVY RN AND I ASSESSED DRESSING. PRESSURE DRESSING TO RIGHT POSTERIOR SHOULDER. UNDERNEATH PRESSURE DRESSING 1 NON ADHERENT STERILE GAUZE AND SUTURES IN PLACE. TO RIGHT UPPER SHOULDER. PATIENT ABLE TO WIGGLE FINGERS.
--- NOTE | 2025-04-09 09:45 | EKG ---
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
== END 2025-04-09 10:08 | disposition home or self-care (01) ==
LOC: DAH 06:37
PROVIDERS: ATTEND Surgery
DX: L72.0 Epidermal cyst (principal); D17.21 Benign lipomatous neoplasm of skin and subcutaneous tissue of right arm; E78.5 Hyperlipidemia, unspecified; I11.9 Hypertensive heart disease without heart failure; J44.9 Chronic obstructive pulmonary disease, unspecified; K74.60 Unspecified cirrhosis of liver; D69.6 Thrombocytopenia, unspecified; Z82.49 Family history of ischemic heart disease and other diseases of the circulatory system; Z79.899 Other long term (current) drug therapy; Z98.890 Other specified postprocedural states
CPT/HCPCS: 80048; 85025; 36415; 11404; 12032; 88304; 93005; A6260; A4663; J7120 ×2; J0690 ×2; J0665 ×2; J2003; J2250 ×2; J2704 ×2; J3490; A4215; A4213; A4222; A4221; A4216; A4450; A4223 ×2